=== PATIENT | female | born 1930 | race Caucasian/White ===

== ENCOUNTER 2016-09-14 13:30 | Emergency (ER) | payer MEDICARE ==
[~2016-09-14] VITALS: Ht 160 cm; Wt 65.2 kg
[~2016-09-14 13:30] MED LIST: ASPI81TA2 PO; AZIT500T5 PO; BECL8.7A6 ORAL INH; BENA10TA PO; BUDE180A INH; CITA20TA9 PO; DILT120C48 PO; GABA-336 PO; INSU100C14 SQ; INSU100V12 SQ; INSU100V13 SQ; IPRA4AER INH; LATA2.5D7 RIGHT EYE; MULT1CAP47 PO; NAPR220T24 PO; PRED20TA PO; QUET25TA PO; SIMV40TA2 PO
[2016-09-14 13:35] VITALS: Ht 160 cm; Wt 65.2 kg
--- OUTSIDE RECORDS SUMMARY | 2016-09-14 13:35 | XMS REPORT | Continuity of Care Document ---
Author Author Josh [facility] Organization [facility] Address Unknown Phone Unavailable Support Name Relationship Address Phone MARIANA SMART MD Caregiver [address] [place] [address] SEBASTIAN PARSONS MD Caregiver [address] [place] [phone] JOSE FALLON DPOA Next Of Kin [address], [place] [id number] Insurance Providers Payer Name Policy Number Subscriber Name Relationship Medicareadvantra Ppo [id number] Kurt Samuel 16 Self Advance Directives Directive Response Recorded Date/Time Ordered Resuscitation Status Do Not Resuscitate 03/26/14 6:12pm Resuscitation Documents on File Yes 03/26/14 5:49pm Chief Complaint and Reason for Visit Chief Complaint DEHYDRATION/SYNCOPE VS FALL/ELEVATED CK/MYOGLOBIN Reason for Visit Dizziness and Giddiness UTI (urinary tract infection) Dehydration Rhabdomyolysis Problems Medical Problems Problem Onset Date Status Dizziness and Giddiness Unknown Active UTI (urinary tract infection) Unknown Active Dehydration Unknown Active Rhabdomyolysis 03/28/2014 Active Medications Medication Dose Route Sig Days/Qty Instructions Order Date Discontinued Date Status Simvastatin 40 Mg PO BEDTIME 11/03/10 05/22/12 Discontinued Budesonide 2 PO TWICE A DAY 11/03/10 Active Diltiazem Hcl 120 Mg PO DAILY 11/03/10 03/28/14 Discontinued Benazepril Hcl 10 Mg PO DAILY 11/03/10 Active Quetiapine Fumarate 25 Mg PO DAILY 11/03/10 Active Citalopram Hydrobromide 10 Mg PO DAILY 11/03/10 03/28/14 Discontinued Digoxin 125 Mg PO DAILY 11/03/10 Active Naproxen 1 Tab PO NEEDED 11/03/10 Active Multivitamins W-Minerals 1 Cap PO DAILY 11/03/10 Active Ipratropium/Albuterol Sulfate 14.7 Gm IH FOUR TIMES DAILY 01/21/11 Active Insulin Detemir 40 U SQ DAILY 01/21/11 03/28/14 Discontinued Gabapentin 300 Mg PO TWICE A DAY 01/21/11 05/22/12 Discontinued Diltiazem Hcl 120 Mg PO DAILY 05/22/12 Active Gabapentin 300 Mg PO TWICE A DAY 05/22/12 Active Aspirin 325 Mg PO BEDTIME 05/22/12 Active Simvastatin 40 Mg PO BEDTIME Take 1 tablet, one time a day at BEDTIME. 03/26/14 Active Ipratropium/Albuterol Sulfate 2 Puff PO FOUR TIMES DAILY 03/26/14 Active [Metformin] 1 Tab PO TWICE A DAY 03/26/14 Active Insulin Lispro 1 Unit SQ 03/26/14 03/28/14 Discontinued Levofloxacin 500 Mg PO BEFORE BREAKFAST 8 Qty 03/28/14 Active Citalopram Hydrobromide 20 Mg PO DAILY 30 Days 03/28/14 03/28/14 Discontinued Citalopram Hydrobromide 1 Tab PO DAILY 30 Qty 03/28/14 Active Social History Social History Problem Response Recorded Date/Time Smoking Status Former smoker 03/26/2014 5:50pm When did patient START smoking? AGE 12 YEARS "OFF AND ON " 03/26/2014 5:50pm When did patient STOP smoking? 15 YEARS AGO 03/26/2014 5:50pm Hx Substance Use No 02/16/2013 7:20am Hx Alcohol Use Y OCCASIONAL 03/26/2014 11:55am Has the pt used tobacco in the last 12 months No 03/26/2014 5:50pm Query Response Start Date Stop Date Smoking Status Former smoker Hospital Discharge Instructions Instructions: Care Instructions: Reason for Hospitalization: Dehydration, urinary tract infection. I was in the hospital because (patient own words): PT STATES "BECAUSE I COULDN'T GET UP OFF THE FLOOR. " Discharge Diet: 1800 edwin ADA Discharge Activity: As tolerated; up with walker for support. Follow Up Appointments: Follow up with Dr. Parsons on April 12, 2014 at 11:00am. General Information: Please have Home health call me daily with updates including blood sugars at first. Condition at time of discharge: Fair Condition at time of discharge: Good Fluid restriction - 800 cc per day Wound/Incision Care: n/a Durable Medical Equipment: n/a Notify Physician If: Worsening nosebleeds, blood in the stool, abdominal pain General Information: n/a Condition at time of discharge: Fair Plan of Care Discharge Date 03/28/14 1:38pm Disposition 06 HOME HEALTH SERVICE Instructions/Education Provided DI for Dehydration -- Adult DI for Urinary Tract Infection (UTI) Prescriptions See Medications Section Functional Status Query Response Date Recorded Physical Hygiene Self March 28, 2014 11:10am Disabilities Hearing March 28, 2014 11:10am Devices Used None March 28, 2014 11:10am Dressing Self March 28, 2014 11:10am Ambulation Self March 28, 2014 11:10am Diet Self March 28, 2014 11:10am Mental Status Alert Forgetful March 28, 2014 11:10am Disabilities Hearing March 28, 2014 11:10am Devices Used None March 28, 2014 11:10am Physical Hygiene Self March 28, 2014 11:10am Dressing Self March 28, 2014 11:10am Ambulation Self March 28, 2014 11:10am Diet Self March 28, 2014 11:10am Allergies, Adverse Reactions, Alerts Allergen Type Severity Reaction Status Last Updated Penicillin Allergy Unknown Active 03/26/14 Immunizations Name Given Type Hx Influenza Vaccination Y MAR 2014 Historical Hx Pneumococcal Vaccination No Historical Hx Influenza Vaccination Y MAR 2014 Historical Vital Signs Acute Vital Signs Vital Response Date/Time Temperature (Fahrenheit) 97.2 deg F (96.8 - 99.1) Temperature (Calculated Celsius) 36.59626 degrees C (36.0 - 37.3) Temperature Source Oral Pulse Rate (adult) 72 bpm (60 - 100) Respiratory Rate 24 breaths/min (10 - 20) O2 Sat by Pulse Oximetry 95 % (90 - 100) Height 5 ft 3 in Weight 134 lb Body Mass Index 23.0 kg/m^2 Results Test Source Date Result Interp. Ref. Range Comments Alanine Aminotransferase (ALT/SGPT) March 28, 2014 5:18am 75 U/L H 9- 52 Albumin March 28, 2014 5:18am 2.8 G/DL L 3.5-5.0 Albumin/Globulin Ratio March 28, 2014 5:18am 1.0 RATIO L 1.1-2.2 Alkaline Phosphatase March 28, 2014 5:18am 155 U/L DH 38-126 Anion Gap March 28, 2014 5:18am 12 MEQ/L N 5-15 Aspartate Amino Transf (AST/SGOT) March 28, 2014 5:18am 65 U/L H 14- 36 B-Type Natriuretic Peptide November 26, 2007 10:18am 27 PG/ML N 15-100 BUN/Creatinine Ratio March 28, 2014 5:18am 20 RATIO N 6-26 Band Neutrophils # March 27, 2014 4:59am 1.0 T/MM3 - Band Neutrophils % March 27, 2014 4:59am 8.0 % H 0-6 Basophils # (Auto) March 28, 2014 5:18am 0.1 T/MM3 N 0-0.2 Basophils (%) (Auto) March 28, 2014 5:18am 0.7 % N 0-2 Blood Urea Nitrogen March 28, 2014 5:18am 16.0 MG/DL N 7-17 Calcium Level March 28, 2014 5:18am 8.8 MG/DL N 8.4-10.2 Calculated Osmolality March 28, 2014 5:18am 275 MOSM/KG N 261-280 Carbon Dioxide Level March 28, 2014 5:18am 24 MEQ/L N 22-30 Chemistry Specimen Hemolysis March 28, 2014 5:18am < 15 0-25 0-25: No Hemolysis.26-70: Slight Hemolysis - can falsely elevate K and Urine Protein. 71-285: Moderate Hemolysis - can falsely elevate K, Troponin I, CA 19-9, PTH, CSF GLucose, and Urine Protein, and can falsely decrease Phenytoin. 286-999: Gross Hemolysis - can falsely elevate K, Troponin I, CA 19-9, PTH, CSF Glucose, and Urine Protine, and can falsely decrease Phenytoin. Recommend specimen recollection. Chloride Level March 28, 2014 5:18am 106 MEQ/L N 98-107 Conjugated Bilirubin May 22, 2012 9:44am 0.00 MG/DL N 0.00-0.30 Creatinine March 28, 2014 5:18am 0.8 MG/DL N 0.7-1.2 Digoxin Level March 26, 2014 8:05pm 0.5 NG/ML L 0.8-2.0 COMMENT ON BLOOD IN LAB EKG November 26, 2007 10:18am Complete - COMMENT LAB Eosinophils # (Auto) March 28, 2014 5:18am 0.1 T/MM3 N 0-0.5 Eosinophils (%) (Auto) March 28, 2014 5:18am 1.3 % N 0-4 Globulin March 28, 2014 5:18am 2.7 G/DL N 2.4-3.6 Glomerular Filtration Rate Calc March 28, 2014 5:18am 68 - Glucometer March 28, 2014 5:58am 117 mg/dL H 65-110 Glucose Level March 28, 2014 5:18am 111 MG/DL H 65-110 Hematocrit March 28, 2014 5:18am 35.0 % L 36-46 Hemoglobin March 28, 2014 5:18am 11.7 GM/DL L 12-16 Icterus Index March 28, 2014 5:18am < 2 0-7 Immature Granulocyte # (Auto) March 28, 2014 5:18am 0.14 T/MM3 H 0.00- 0.03 Immature Granulocyte % (Auto) March 28, 2014 5:18am 1.3 % H 0.0-0.5 Lymphocytes # (Auto) March 28, 2014 5:18am 1.0 T/MM3 N 1-4.8 Lymphocytes # (Manual) March 27, 2014 4:59am 0.6 T/MM3 L 1-4.8 Lymphocytes % (Manual) March 27, 2014 4:59am 5.0 % L 23-45 Lymphocytes (%) (Auto) March 28, 2014 5:18am 9.3 % L 23-45 Mean Corpuscular Hemoglobin March 28, 2014 5:18am 30.7 UUG N 26-34 Mean Corpuscular Hemoglobin Concent March 28, 2014 5:18am 33.4 GM/DL N 31-37 Mean Corpuscular Volume March 28, 2014 5:18am 91.9 UM3 N 80-100 Mean Platelet Volume March 28, 2014 5:18am 10.1 UM3 N 9.4-12.4 Monocytes # (Auto) March 28, 2014 5:18am 1.3 T/MM3 H 0-0.8 Monocytes # (Manual) March 27, 2014 4:59am 1.0 T/MM3 H 0-0.8 Monocytes % (Manual) March 27, 2014 4:59am 8.0 % N 0-9.0 Monocytes (%) (Auto) March 28, 2014 5:18am 12.2 % H 0-9.0 Myoglobin March 26, 2014 12:30pm 489.9 NG/ML H 0-61.5 NN-Cle-N-Type Natriuretic Peptide March 26, 2014 12:30pm 556 PG/ML H 0 -175 Rule in cut points: <50 years old=450; 50-75 years old=900; >75 years old=1800; When utilizing ProBNP rule-in cut points, adjustment for impaired renal function is typically not required. Neutrophils # (Auto) March 28, 2014 5:18am 8.1 T/MM3 H 1.8-7.7 Neutrophils # (Manual) March 27, 2014 4:59am 9.8 T/MM3 H 1.8-7.7 Neutrophils % (Manual) March 27, 2014 4:59am 79.0 % H 33-66 Neutrophils (%) (Auto) March 28, 2014 5:18am 75.2 % H 33-66 Platelet Count March 28, 2014 5:18am 240 T/MM3 N 130-400 Potassium Level March 28, 2014 5:18am 4.1 MEQ/L N 3.6-5 Prothromb Time International Ratio February 16, 2013 8:05am 0.97 N 0.86 -1.10 THERAPUTIC RANGE=2.00-3.00 FOR ANTI-THROMBOSIS THERAPUTIC RANGE=2.50- 3.50 FOR IMPLANTED VALVE RDW Standard Deviation March 28, 2014 5:18am 45.5 FL N 36.9-50.2 Red Blood Count March 28, 2014 5:18am 3.81 M/MM3 L 4.00-5.20 Sodium Level March 28, 2014 5:18am 142 MEQ/L DN 134-144 Total Bilirubin March 28, 2014 5:18am 0.50 MG/DL N 0.20-1.30 Total Creatine Kinase March 28, 2014 5:18am 116 U/L N 30-135 Total Protein March 28, 2014 5:18am 5.5 G/DL L 6.3-8.2 Troponin I February 16, 2013 8:05am < 0.012 ng/ml 0-0.12 Turbidity March 28, 2014 5:18am < 20 0-20 Unconjugated Bilirubin May 22, 2012 9:44am 0.30 MG/DL N 0.00-1.10 Urinalysis Comment February 16, 2013 8:45am Microscopic not ind. - Has specimen been collected/obtained? Y Urine Bacteria March 26, 2014 12:15pm 3+ H - Has specimen been collected/obtained? Y Urine Bilirubin March 26, 2014 12:15pm Negative - Has specimen been collected/obtained? Y Urine Blood March 26, 2014 12:15pm 2+ H - Has specimen been collected /obtained? Y Urine Collection Type March 26, 2014 12:15pm Voided-not cc-midstr - Has specimen been collected/obtained? Y Urine Color March 26, 2014 12:15pm Yellow - Has specimen been collected/obtained? Y Urine Culture Indicated March 26, 2014 12:15pm Cult reflexed &setup - Has specimen been collected/obtained? Y Urine Glucose (UA) March 26, 2014 12:15pm Negative - Has specimen been collected/obtained? Y Urine Ketones March 26, 2014 12:15pm 2+ H - Has specimen been collected/obtained? Y Urine Leukocyte Esterase March 26, 2014 12:15pm 1+ H - Has specimen been collected/obtained? Y Urine Microscopic Not Indicated November 03, 2010 12:45pm Not indicated - Has specimen been collected/obtained? Y Urine Nitrite March 26, 2014 12:15pm Positive H - Has specimen been collected/obtained? Y Urine Protein March 26, 2014 12:15pm 1+ H - Has specimen been collected/obtained? Y Urine RBC March 26, 2014 12:15pm 5-10 /HPF H - Has specimen been collected/obtained? Y Urine Specific [place] March 26, 2014 12:15pm 1.025 - Has specimen been collected/obtained? Y Urine Squamous Epithelial Cells March 26, 2014 12:15pm 0-5 - Has specimen been collected/obtained? Y Urine Turbidity March 26, 2014 12:15pm Sl cloudy - Has specimen been collected/obtained? Y Urine Urobilinogen March 26, 2014 12:15pm 0.2 EU/DL - Has specimen been collected/obtained? Y Urine WBC March 26, 2014 12:15pm 20-30 /HPF H - Has specimen been collected/obtained? Y Urine White Blood Cell Casts March 26, 2014 12:15pm 0-1 /LPF - Has specimen been collected/obtained? Y Urine pH March 26, 2014 12:15pm 6.0 - Has specimen been collected/ obtained? Y White Blood Count March 28, 2014 5:18am 10.8 T/MM3 N 4.5-11.0 Urine Culture Urine, Voided-Not Cc-Midstream March 26, 2014 12:58pm Escherichia Coli Name: KURT SAMUEL Katina Unit #: [id number] : 1930 Sex: F Loc / Svc: ED DOS: 03/26/14 Signed Report #: [id number] DIAGNOSTIC IMAGING REPORT TYPE OF EXAM: CHEST, PA & LATERAL Dictated By: SINDI KAM MD INDICATION: ITS.REASON: fall, expiratory wheezes CHEST 2-VIEWS UPRIGHT (PA & LAT): COMPARISON: February 16, 2013 FINDINGS: The lungs are clear without evidence of focal abnormal airspace opacity. There is no pleural effusion or pneumothorax. Poststernotomy changes are present. The heart size, mediastinal contours and pulmonary vascularity are stable. IMPRESSION: No acute cardiopulmonary disease. . Procedures No known history of procedures. Encounters Encounter Location Date/Time Discharged Inpatient [facility] 03/26/14 4:19pm Recent Diagnosis Dizziness and Giddiness UTI (urinary tract infection) Dehydration Rhabdomyolysis
--- OUTSIDE RECORDS SUMMARY | 2016-09-14 13:35 | XMS REPORT | Continuity of Care Document ---
Author Author [facility] Organization [facility] Address Unknown Phone Unavailable Support Name Relationship Address Phone SEBASTIAN PARSONS MD Caregiver [address] [place] [address] [place] [address] Unavailable SEBASTIAN PARSONS MD Caregiver [address] [place] [address] [place] [address] Unavailable SEBASTIAN PARSONS MD Caregiver [address] [place] [address] [place] [address] Unavailable FALLONJOSE SUAZO DPOA Next Of Kin [address] [place] [address] Insurance Providers Guarantor Kurt Samuel Address [address] [place] [address] Email PER DPOA NO PT PORTAL/NO MORE CALLS Payer Medicareadvantra Ppo Policy Number [id number] Subscriber's Name JimmieKurt N Relationship 18 Self Group Number [id number] Advance Directives Directive Response Recorded Date/Time Dr Ash Resuscitation Status Do Not Resuscitate 06/09/16 3:51pm Resuscitation Documents on File No 06/09/16 4:30pm DPOA for Healthcare Only No 06/09/16 4:30pm Living Will No 06/09/16 4:30pm Problems Active Problems Medical Problem Onset Date Status Dehydration Unknown Acute Dizziness and Giddiness Unknown Acute Elevated CK Unknown Acute Elevated myoglobin level Unknown Acute Elevated myoglobin level Unknown Acute Near syncope Unknown Acute Rhabdomyolysis 03/28/2014 Acute UTI (urinary tract infection) Unknown Acute Medications Current Home Medications Medication Dose Units Route Directions Days Qty Instructions Start Date Albuterol/Ipratropium (Combivent Respimat Inhal [place]) 120 Puff/4 Gm Inha 2 Puff Inhalation Every 4 Hours as needed for Shortness Of Air Aspirin 81 Mg Tab.chew 1 Tab Oral Daily 11/23/14 Azithromycin 500 Mg Tablet 500 Mg Oral Daily 3 Days 3 Tablet 06/11/16 Beclomethasone Dipropionate (Qvar 80) 8.7 Gm Aer.w.adap 2 Puff Oral Inhalation Twice A Day 06/10/16 Benazepril Hcl (Lotensin) 10 Mg Tablet 1 Tab Oral Daily 11/03/10 Budesonide (Pulmicort) 180 Mcg Aero.powd 2 Puff Inhalation Daily 11/03/10 Citalopram Hydrobromide (Citalopram Hbr) 20 Mg Tablet 1 Tab Oral Daily 06/10/16 Diltiazem Hcl (Cartia Xt) 120 Mg Cap.sr.24h 1 Cap Oral Daily 22/05 Gabapentin 100 Mg Capsule 1 Cap Oral Three Times A Day 06/10/16 Insulin Aspart (Novolog) 100 Unit/Ml Inj 12 Unit Sub-Q Daily 09/21 Insulin Detemir (Levemir) 100 Unit/Ml Inj 30 Unit Sub-Q Bedtime 06/10/16 Insulin Lispro (Humalog) 100 Unit/1 Ml Cartridge 7 Unit Sub-Q Three Times Daily With Meals 11/23/14 Latanoprost 2.5 Ml Drops 1 Drop Right Eye Only Daily 06/10/16 Multivitamins W-Minerals (Multivitamin) 1 Cap Capsule 1 Cap Oral Daily 11/03/10 Naproxen Sodium 220 Mg Tablet 1 Tab Oral Daily as needed for Pain 06/10/16 Prednisone 20 Mg Tablet 20 Mg Oral Twice Daily With Meals 7 Days 14 Tablet Take 1 tablet, by mouth, 2 times a day with meals. 06/11/16 Quetiapine Fumarate (Seroquel) 25 Mg Tablet 12.5 Mg Oral Bedtime Take 1 tablet, by mouth, once a day at bedtime. 06/10/16 Simvastatin (Zocor) 40 Mg Tablet 1 Tab Oral Bedtime 03/26/14 Past Home Medications Medication Directions Ordered Status Citalopram Hydrobromide (Celexa) 10 Mg Tablet, 20 Mg Oral Daily 03/28/14 Discontinued Citalopram Hydrobromide (Celexa) 10 Mg Tablet, 10 Mg Oral Daily 11/03/10 Discontinued Diltiazem Hcl (Cardizem Sr) 120 Mg Cap.sr.12h, 120 Mg Oral Daily 11/03/10 Discontinued Gabapentin 300 Mg Tablet, 300 Mg Oral Twice A Day 01/21/11 Discontinued Insulin Detemir (Levemir) 100 U/Ml Insuln.pen, 40 U Sub-Q Daily 01/21/11 Discontinued Insulin Lispro (Humalog) 100 Unit/1 Ml Insuln.pen, 1 Unit Sub-Q 03/26/14 Discontinued Simvastatin (Zocor) 40 Mg Tablet, 40 Mg Oral Bedtime 11/03/10 Discontinued Social History Social History Problem Response Recorded Date/Time Onset Date Status Reason for Hospitalization COPD 06/11/2016 11:19am Not Applicable Not Applicable Hx Substance Use No 11/23/2014 11:15am Not Applicable Not Applicable Hx Alcohol Use Y OCCASIONAL 11/23/2014 11:15am Not Applicable Not Applicable Has the pt used tobacco in the last 12 months No 06/09/2016 4:32pm Not Applicable Not Applicable Tobacco Usage none 11/28/2014 3:19pm Not Applicable Not Applicable Query Response Start Date Stop Date Smoking Status Former smoker Hospital Discharge Instructions Instructions: Care Instructions: Reason for Hospitalization: COPD I was in the hospital because (patient own words): The doctor sent me. I've been coughing up phelm. Discharge Diet: ADA 2000 Abbe diabetic diet Discharge Activity: As tolerated; rec PT/OT eval Follow Up Appointments: Dr. Parsons in one week Pending Lab / Results: Follow up w/ your PCP Wound/Incision Care: N/A Pain Scale Utilized to Educate Patient: 0-10 Pain Scale Pain Management/Treatment: N/A Expected Signs/Symptoms: Mild Cough Mild SOA Notify Physician If: Fever Lethargy Worsening cough or SOA During Business Hours:: Please call the physician's office at [phone] After Business Hours:: Please call [phone] and have the stitcher set up operator automatic page the physician. Condition at time of discharge: Good Plan of Care Discharge Date 06/11/16 1:13pm Disposition 03 TO [facility] NOT [facility] (SNF) Instructions/Education Provided Chronic Obstructive Pulmonary Disease Prescriptions See Medication Section Care Plan and Goals See Discharge Instructions Section Functional Status Query Response Date Recorded Mobility Status Ambulatory w/assist June 11, 2016 11:19am Assistive Devices Four Wheeled Walker June 11, 2016 11:19am Activity Limitations Shortness of breath June 11, 2016 11:19am Feeding Ability Independent June 11, 2016 11:19am Toileting Ability Assist June 11, 2016 11:19am Grooming Ability Independent June 11, 2016 11:19am Dressing Ability Independent June 11, 2016 11:19am Driving Ability Dependent June 11, 2016 11:19am Housework Ability Independent June 11, 2016 11:19am Meal Preparation Ability Dependent June 11, 2016 11:19am Stair Climbing Ability Assist June 11, 2016 11:19am Ability to complete ADL's impeded by No change June 11, 2016 11:19am Cognitive/Perceptual Impairments Impaired vision Impaired hearing June 11, 2016 11:19am Visual Assistive Devices Glasses June 09, 2016 8:46pm Preferred Method of Learning Listening June 09, 2016 8:46pm Allergies, Adverse Reactions, Alerts Allergen Type Severity Reaction Status Last Updated Penicillin Allergy Unknown Active 11/23/14 Immunizations Query Response on File Recorded Date/Time Hx Influenza Vaccination Y Feb 2016 06/09/16 4:32pm Hx Pneumococcal Vaccination No 06/09/16 4:32pm Hx Influenza Vaccination Y Feb 2016 06/09/16 4:32pm Influenza Vaccine Hx feb 2016 06/09/16 6:38pm Vital Signs Acute Vital Signs Vital Response Date/Time Temperature (Fahrenheit) 96.3 deg F (96.8 - 99.1) 06/11/2016 7:44am Temperature (Calculated Celsius) 35.83488 degrees C (36.0 - 37.3) 06/11/2016 7:44am Pulse Rate (adult) 88 bpm (60 - 100) 06/11/2016 7:44am Respiratory Rate 22 breaths/min (10 - 20) 06/11/2016 7:44am O2 Sat by Pulse Oximetry 91 % (90 - 100) 06/11/2016 11:25am Oxygen Delivery Method Room Air 06/11/2016 7:44am Oxygen Flow Rate 2.00 L/min 06/11/2016 12:15am Blood Pressure 162/80 mm Hg 06/11/2016 7:44am Blood Pressure Source Automatic Cuff 06/11/2016 7:44am Height (Feet) 5 feet 06/09/2016 4:01pm Height (Inches) 3.00 inches 06/09/2016 4:01pm Weight (Kilograms) 68.400 kg 06/11/2016 7:44am Body Mass Index (BMI) 26.1 06/09/2016 4:01pm Results Laboratory Results Test Name Result Units Flags Reference Collection Date/Time Result Date/ Time Comments White Blood Count 11.6 T/MM3 D H 4.5-11.0 06/11/2016 4:36am 06/11/2016 5: 59am Red Blood Count 3.66 M/MM3 L 4.00-5.20 06/11/2016 4:36am 06/11/2016 5: 59am Hemoglobin 11.7 GM/DL L 12-16 06/11/2016 4:36am 06/11/2016 5:59am Hematocrit 35.2 % L 36-46 06/11/2016 4:36am 06/11/2016 5:59am Mean Corpuscular Volume 96.2 UM3 80-100 06/11/2016 4:36am 06/11/2016 5: 59am Mean Corpuscular Hemoglobin 32.0 UUG 26-34 06/11/2016 4:36am 2016 5:59am Mean Corpuscular Hemoglobin Concent 33.2 GM/DL 31-37 06/11/2016 4:36am 06/11/2016 5:59am RDW Standard Deviation 43.6 FL 36.9-50.2 06/11/2016 4:36am 06/11/2016 5 :59am Platelet Count 261 T/MM3 130-400 06/11/2016 4:36am 06/11/2016 5:59am Mean Platelet Volume 10.0 UM3 9.4-12.4 06/11/2016 4:36am 06/11/2016 5: 59am Neutrophils (%) (Auto) 77.8 % H 33-66 06/09/2016 4:41pm 06/09/2016 4: 51pm Lymphocytes (%) (Auto) 10.9 % L 23-45 06/09/2016 4:41pm 06/09/2016 4: 51pm Monocytes (%) (Auto) 8.2 % 0-9.0 06/09/2016 4:41pm 06/09/2016 4:51pm Eosinophils (%) (Auto) 2.1 % 0-4 06/09/2016 4:41pm 06/09/2016 4:51pm Basophils (%) (Auto) 0.4 % 0-2 06/09/2016 4:41pm 06/09/2016 4:51pm Immature Granulocyte % (Auto) 0.6 % H 0.0-0.5 06/09/2016 4:41pm 2016 4:51pm Absolute Neutrophils (auto) 8.9 T/MM3 H 1.8-7.7 06/09/2016 4:41pm 2016 4:51pm Absolute Lymphocytes (auto) 1.3 T/MM3 1-4.8 06/09/2016 4:41pm 2016 4:51pm Absolute Monocytes (auto) 0.9 T/MM3 H 0-0.8 06/09/2016 4:41pm 2016 4:51pm Absolute Eosinophils (auto) 0.2 T/MM3 0-0.5 06/09/2016 4:41pm 2016 4:51pm Absolute Basophils (auto) 0.1 T/MM3 0-0.2 06/09/2016 4:41pm 06/09/2016 4:51pm Absolute Immature Granulocyte (auto 0.07 T/MM3 H 0.00-0.03 06/09/2016 4: 41pm 06/09/2016 4:51pm Neutrophils % (Manual) 83.0 % H 33-66 06/11/2016 4:36am 06/11/2016 6: 38am Band Neutrophils % 3.0 % 0-6 06/10/2016 4:21am 06/10/2016 6:29am Lymphocytes % (Manual) 14.0 % L 23-45 06/11/2016 4:36am 06/11/2016 6: 38am Monocytes % (Manual) 3.0 % 0-9.0 06/11/2016 4:36am 06/11/2016 6:38am Band Neutrophils # 0.2 T/MM3 06/10/2016 4:21am 06/10/2016 6:29am Absolute Neutrophils (Manual) 9.6 T/MM3 H 1.8-7.7 06/11/2016 4:36am 10/2016 6:38am Lymphocytes # (Manual) 1.6 T/MM3 1-4.8 06/11/2016 4:36am 06/11/2016 6: 38am Monocytes # (Manual) 0.3 T/MM3 0-0.8 06/11/2016 4:36am 06/11/2016 6: 38am Red Cell Morphology Comment NORMAL 06/11/2016 4:36am 06/11/2016 6: 38am Icterus Index < 2 0-7 06/11/2016 4:36am 06/11/2016 5:07am Chemistry Specimen Hemolysis < 15 0-25 06/11/2016 4:36am 06/11/2016 5 :07am 0-25: Specimen Exhibited No Hemolysis. Turbidity < 20 0-20 06/11/2016 4:36am 06/11/2016 5:07am Sodium Level 136 MEQ/L 134-144 06/11/2016 4:36am 06/11/2016 5:07am Potassium Level 4.6 MEQ/L 3.6-5 06/11/2016 4:36am 06/11/2016 5:07am Chloride Level 101 MEQ/L 98-107 06/11/2016 4:36am 06/11/2016 5:07am Carbon Dioxide Level 26 MEQ/L 22-30 06/11/2016 4:36am 06/11/2016 5: 07am Anion Gap 9 MEQ/L 5-15 06/11/2016 4:36am 06/11/2016 5:07am Blood Urea Nitrogen 17.0 MG/DL 7-17 06/11/2016 4:36am 06/11/2016 5: 07am Creatinine 0.6 MG/DL L 0.7-1.2 06/11/2016 4:36am 06/11/2016 5:07am BUN/Creatinine Ratio 28 RATIO H 6-26 06/11/2016 4:36am 06/11/2016 5: 07am Glomerular Filtration Rate Calc 94 06/11/2016 4:36am 06/11/2016 5: 07am Glucose Level 160 MG/DL H 65-110 06/11/2016 4:36am 06/11/2016 5:07am Calculated Osmolality 267 MOSM/KG 261-280 06/11/2016 4:36am 06/11/2016 5:07am Calcium Level 9.1 MG/DL 8.4-10.2 06/11/2016 4:36am 06/11/2016 5:07am Total Bilirubin 0.30 MG/DL 0.20-1.30 06/11/2016 4:36am 06/11/2016 5: 07am Alkaline Phosphatase 54 U/L 38-126 06/11/2016 4:36am 06/11/2016 5:07am Total Protein 6.0 G/DL L 6.3-8.2 06/11/2016 4:36am 06/11/2016 5:07am Albumin 3.4 G/DL L 3.5-5.0 06/11/2016 4:36am 06/11/2016 5:07am Globulin 2.6 G/DL 2.4-3.6 06/11/2016 4:36am 06/11/2016 5:07am Albumin/Globulin Ratio 1.3 RATIO 1.1-2.2 06/11/2016 4:36am 06/11/2016 5 :07am Aspartate Amino Transf (AST/SGOT) 26 U/L 14-36 06/11/2016 4:36am 2016 5:07am Alanine Aminotransferase (ALT/SGPT) 36 U/L 9-52 06/11/2016 4:36am 06/11 5:07am Adenovirus (PCR) NEGATIVE NEGATIVE 06/09/2016 7:49pm 06/09/2016 9: 24pm Coronavirus Type 229E (PCR) NEGATIVE NEGATIVE 06/09/2016 7:49pm 06/09 9:24pm Coronavirus Type HKU1 (PCR) NEGATIVE NEGATIVE 06/09/2016 7:49pm 06/09 9:24pm Coronavirus Type NL63 (PCR) NEGATIVE NEGATIVE 06/09/2016 7:49pm 06/09 9:24pm Coronavirus Type OC43 (PCR) DETECTED A NEGATIVE 06/09/2016 7:49pm 08/2016 9:24pm Human Metapneumovirus (PCR) NEGATIVE NEGATIVE 06/09/2016 7:49pm 06/09 9:24pm Enterovirus/Rhinovirus (PCR) NEGATIVE NEGATIVE 06/09/2016 7:49pm 08/2016 9:24pm Influenza Virus Type A (PCR) NEGATIVE NEGATIVE 06/09/2016 7:49pm 08/2016 9:24pm Influenza Virus Type B (PCR) NEGATIVE NEGATIVE 06/09/2016 7:49pm 08/2016 9:24pm Parainfluenza Type 1 (PCR) NEGATIVE NEGATIVE 06/09/2016 7:49pm 2016 9:24pm Parainfluenza Type 2 (PCR) NEGATIVE NEGATIVE 06/09/2016 7:49pm 2016 9:24pm Parainfluenza Type 3 (PCR) NEGATIVE NEGATIVE 06/09/2016 7:49pm 2016 9:24pm Parainfluenza Type 4 (PCR) NEGATIVE NEGATIVE 06/09/2016 7:49pm 2016 9:24pm Respiratory Syncytial Virus (PCR) NEGATIVE NEGATIVE 06/09/2016 7:49pm 06/09/2016 9:24pm Bordetella parapertussis DNA (PCR) NEGATIVE NEGATIVE 06/09/2016 7: 49pm 06/09/2016 9:24pm Chlamydia pneumoniae DNA (PCR) NEGATIVE NEGATIVE 06/09/2016 7:49pm 9:24pm Mycoplasma pneumoniae (PCR) NEGATIVE NEGATIVE 06/09/2016 7:49pm 06/09 9:24pm Glucometer 226 mg/dL H 65-110 06/11/2016 10:58am 06/11/2016 11:03am Name: KURT SAMUEL Unit #: [id number] : 1930 Sex: F Admit Date: 06/09/16 Loc / Svc: MED Discharge Date: DIAGNOSTIC IMAGING REPORT Report #: [id number] [place], [place] INDICATION: ITS.REASON: F/U COPD exac/pneumonia PROCEDURE: CHEST 2-VIEWS UPRIGHT (PA \T\ LAT) Encounter: Initial COMPARISON: June 09, 2016 FINDINGS: Lungs appear stable with mild interstitial prominence. No new or worsening airspace disease. No pleural effusion or pneumothorax. Prior CABG. Heart size, pulmonary vascularity and mediastinal contours are stable. Impression: Stable appearance of the chest. . Procedures No known history of procedures. Encounters Encounter Location Arrival/Admit Date Discharge/Depart Date Attending Provider Discharged Inpatient [facility] 06/09/16 3:31pm 06/11/16 1:13pm SEBASTIAN PARSONS MD
--- NOTE | 2016-09-14 13:50 | NUR ---
REPORT TO NEIL DONG
--- NOTE | 2016-09-14 14:11 | ERPDOC ---
Departure Disposition Decision Date: Sep 14, 2016 Disposition Decision Time: 15:55 Disposition: 01 DISCHARGED HOME, SELF-CARE Impression Impression Impression: Primary Impression: Lingular pneumonia Severity: Moderate Condition: Stable Seen By: Mid-level only Referrals: SEBASTIAN FONSECA MD (Family) Patient Instructions: Pneumonia (ED) Problems/Meds/Labs Reviewed?: Yes Medications reviewed and manag: Yes Additional Instructions: Take the Zithromax as prescribed. We did give a dose of Rocephin in ER and also have given her the first dose of Zithromax as well. Please continue to administer O2 at 2L per NC to maintain sats above 92%. Follow up with primary care provider if any further concerns. Sepsis labs today are all normal. Follow up care ordered?: Yes Mental Status: Alert Scripts Azithromycin (Zithromax) 250 Mg Tablet 1 TAB PO DAILY, #4 TAB 0 Refills TAKE TWO ON DAY ONE, THEN ONE TAB DAILY UNTIL ALL TAKEN. Prov: LISA BRUNO OFFICE SYSTEM ANALYST 09/14/16 HPI - General Medical General Chief Complaint: Cough,Fever,Flu,URI Stated Complaint: EVALVATED R/O PNEMONIA & SEPSIS Time Seen by Provider: 14:00 Source: patient Exam Limitations: no limitations HPI - General Medical Initial Comments She presents to ER from the longterm where she lives. For the last several days she has not felt well. Review of [place] nurses notes does show that she has been becoming increasingly weak over the last week. Had fallen in her room a few days ago. Also had at least one episode of vomiting. She did see her PCP and was noted to have O2 sats of 88%. Was started on 2 L O2 per NC at that time. She was scheduled to follow up with him but did not go to the appointment. Today she c/o to the nurses that she was to weak to walk and so they made her an appoinment with her PCP. He sent her here to the ER for evaluation for possible sepsis. She is alert and oriented and denies any vomiting/nausea, abdominal pain, chest pain. She states that she is SOA but is always SOA. Does not appear in any distress at this time. Occurred At: home Severity: moderate Associated Symptoms: fever/chills (elevated temp per [place] staff), malaise, nausea /vomiting, weakness, DENIES: chest pain, cough, diaphoresis, headaches, loss of appetite, rash, seizure, shortness of breath, syncope Hx of Similar Symptoms: No Allergies: Coded Allergies: Penicillins (Unverified Allergy, Unknown, 09/14/16) Uncoded Allergies: ANTIHISTAMINES (Allergy, Unknown, 09/14/16) Past History Past Medical History Metabolic: diabetes, hypercholesterolemia, hypertension ENMT: other Cardiac: CAD, PSVT Hx Echocardiogram: No Respiratory: COPD, pneumonia Female: UTI Surgical History General: hernia Cardiac: cardiac bypass Reproductive/: other Joint: knee Family History Family PMH: FOUND: CAD, CVA, cancer, diabetes, hypertension Vaccines Hx Influenza Vaccination: Yes (Feb 2016) Hx Pneumococcal Vaccination: No Review of Systems Constitutional Constitutional: fatigue, fever (per [place]), weakness, DENIES: chills, dizziness Eyes Vision: DENIES: blurring, double vision ENMT Ears: DENIES: drainage, pain Sinuses: DENIES: congestion, rhinorrhea Mouth/Throat: DENIES: painful swallowing, scratchy throat, sore throat Cardiovascular Cardiac: DENIES: chest pain, orthopnea Rhythm/Rate: DENIES: irregular beat, palpitations Pulmonary Respiratory: cough, DENIES: dyspnea, sputum, tachypnea GI Upper Abdomen: DENIES: nausea, pain, vomiting Lower Abdomen: DENIES: constipation, diarrhea, pain Integumentary Skin: DENIES: rash Neurological General: DENIES: headache, numbness, tingling, weakness Physical Exam General General Nourishment: well nourished, well developed, appears stated age, no acute distress, adult General Body Habitus: well groomed Vitals and Pain First Documented Vital Signs Date Time Temp Pulse Resp B/P Pulse Ox O2 Delivery O2 Flow Rate FiO2 09/14/16 13:35 98.3 74 24 132/60 96 Nasal Cannula 2.00 Weight: Kilograms: 65.200 Height (feet): 5 Height (inches): 3.00 Triage Pain Scale: RN VS reviewed by Provider: Yes Normal Exams: Neck: Full range of motion, without adenopathy, JVD, bruits or thyromegaly CV: Regular rate and rhythm, without murmur or gallop, Pulses 2+ all extremities, capillary refill, <2 seconds all ext., no pedal edema noted Abdomen: Bowel sounds positive, soft, non-tender, non-distended, no hepatosplenomegaly, masses or bruits noted Lymphatic: No lymphadenopathy, or lymphedema noted Integumentary: No rashes, hives, or bruising noted Neurologic: Patient is alert, and oriented, cranial nerves, motor/sensory/ cerebellar, exams w/o gross deficits, to observation Psychiatric: Patient exhibits, appropriate attention, emotion and affect ENMT (brief) ENMT Brief: FOUND: TM clear, TM good light reflex, ear canals clear, mucosa moist, normal dentition, normal tonsils, NOT FOUND: nasal erythema, nasal exudate, nasal swelling, pharnyx erythema, tonsillar deviation Respiratory (brief) Respiratory: FOUND: other (Slightly diminished throughout) Differential Diagnoses Considering: Acute IA, Encephalitis, Hypo/Hyperglycemia, Hypo/Hyperkalemia, Hypo/Hypernatremia, Metabolic, Pneumonia, UTI, Other (Sepsis) Progress Results/Orders Orders Procedure Category Date Status Time EKG EKG 09/14/16 Logged Troponin I W LAB 09/14/16 Complete Hemolysis Index Blood Culture RUSH 09/14/16 In Process 14:05 Cbc W/Auto LAB 09/14/16 Complete Diff-Reflex Manual Cmp - Comprehensive LAB 09/14/16 Complete Metabolic Iv Lock (Ed Only) EDM 09/14/16 Transmitted 14:05 Chest, Pa & Lateral RAD 09/14/16 Resulted Lactate - Lactic Acid LAB 09/14/16 Complete Procalcitonin LAB 09/14/16 Complete 14:05 Lactate - Lactic Acid LAB 09/14/16 Logged 18:35 Ua, Dip Wreflex LAB 09/14/16 Logged Microsc & Stock Supervisor 14:07 Ceftriaxone I.V. (Er PHA 09/14/16 Complete Use Only) (Rocephin 15:30 Azithromycin PHA 09/14/16 Complete (Zithromax 500 Mg) 16:30 Lab Results Laboratory Tests Test 09/14/16 14:20 White Blood Count 13.3T/MM3 Red Blood Count 4.02M/MM3 Hemoglobin 12.7GM/DL Hematocrit 39.1% Mean Corpuscular Volume 97.3UM3 Mean Corpuscular Hemoglobin 31.6UUG Mean Corpuscular Hemoglobin Concent 32.5GM/DL RDW Standard Deviation 43.7FL Platelet Count 383T/MM3 Mean Platelet Volume 9.3UM3 Immature Granulocyte % (Auto) 0.5% Neutrophils (%) (Auto) 76.9% Lymphocytes (%) (Auto) 13.3% Monocytes (%) (Auto) 7.8% Eosinophils (%) (Auto) 1.3% Basophils (%) (Auto) 0.2% Absolute Immature Granulocyte (auto 0.07T/MM3 Absolute Neutrophils (auto) 10.2T/MM3 Absolute Lymphocytes (auto) 1.8T/MM3 Absolute Monocytes (auto) 1.0T/MM3 Absolute Eosinophils (auto) 0.2T/MM3 Absolute Basophils (auto) 0.0T/MM3 Urine Collection Type Pending Urine Color Pending Urine Turbidity Pending Urine pH Pending Urine Specific [place] Pending Urine Protein Pending Urine Glucose (UA) Pending Urine Ketones Pending Urine Blood Pending Urine Nitrite Pending Urine Bilirubin Pending Urine Urobilinogen Pending Urine Leukocyte Esterase Pending Turbidity < 20 Sodium Level 139MEQ/L Potassium Level 4.1MEQ/L Chloride Level 96MEQ/L Carbon Dioxide Level 34MEQ/L Anion Gap 9MEQ/L Blood Urea Nitrogen 13.0MG/DL Creatinine 0.6MG/DL Glomerular Filtration Rate Calc 94 BUN/Creatinine Ratio 22RATIO Glucose Level 75MG/DL Calculated Osmolality 267MOSM/KG Calcium Level 9.9MG/DL Total Bilirubin 0.60MG/DL Icterus Index < 2 Aspartate Amino Transf (AST/SGOT) 98U/L Alanine Aminotransferase (ALT/SGPT) 116U/L Alkaline Phosphatase 114U/L Troponin I 0.057ng/ml Total Protein 6.9G/DL Albumin 3.6G/DL Globulin 3.3G/DL Albumin/Globulin Ratio 1.1RATIO Plasma Lactate 0.7MMOL/L Procalcitonin 0.22NG/ML Chemistry Specimen Hemolysis < 15 Medications Current ED Medications Ceftriaxone Sodium/Sodium Chloride (Rocephin/NS) 100 ml @ 100 mls/hr O ONCE IV Last administered on 09/14/16 15:48; Start 09/14/16 at 15:30; Stop at 16:29; Status DC Azithromycin (ZITHROMAX 500 mg) 500 mg O ONCE PO Last administered on 16:26; Start 09/14/16 at 16:30; Stop 09/14/16 at 16:31; Status DC Progress Progress WBC is 13.3 with 76.9 neutrophils. Lactate is normal at 0.7. Procalcitonin is normal at 0.22, troponin is negative. Chest xray does how possible lingular pneumonia. Did discuss findings with Dr Fonseca. Does agree with Rocephin 1gm in ER today and starting her on Zithromax. Will have her follow up with PCP if not improving at all. Xray Xray : Reason for Exam: weakness Xray: CXR PA/Lat Interpretation: Abnormal (Increasing opacity in the lingular area) LISA BRUNO APRN Sep 14, 2016 14:11
[2016-09-14] MEDS ORDERED: MULT1TAB69 PO (14:14)
[2016-09-14] MEDS ORDERED: SIMV40TA5 PO (14:16)
[2016-09-14] MEDS ORDERED: NUT.237L33 PO (14:23)
[2016-09-14] MEDS ORDERED: [UNRECOGNIZED DRUG - CODE] PO (14:23)
[2016-09-14] MEDS ORDERED: MAG-37 PO (14:26)
[2016-09-14 14:28] LABS: BASOPHILS % (AUTO) 0.2 % (0-2); EOSINOPHILS # (AUTO) 0.2 T/MM3 (0-0.5); EOSINOPHILS % (AUTO) 1.3 % (0-4); HCT - HEMATOCRIT 39.1 % (36-46); HGB - HEMOGLOBIN 12.7 GM/DL (12-16); IMMATURE GRANULOCYTE # (AUTO) 0.07 T/MM3 (0.00-0.03); IMMATURE GRANULOCYTE % (AUTO) 0.5 % (0.0-0.5); LYMPHOCYTES # (AUTO) 1.8 T/MM3 (1-4.8); LYMPHOCYTES % (AUTO) 13.3 % (23-45); MEAN CORPUSCULAR HGB 31.6 UUG (26-34); MEAN CORPUSCULAR HGB CONC(MCHC 32.5 GM/DL (31-37); MEAN CORPUSCULAR VOLUME 97.3 UM3 (80-100); MEAN PLATELET VOLUME 9.3 UM3 (9.4-12.4); MONOCYTES % (AUTO) 7.8 % (0-9.0); NEUTROPHILS #(AUTO)-ABSOLUTE 10.2 T/MM3 (1.8-7.7); NEUTROPHILS % (AUTO) 76.9 % (33-66); RED BLOOD COUNT 4.02 M/MM3 (4.00-5.20); WBC - WHITE BLOOD COUNT 13.3 T/MM3 (4.5-11.0)
[2016-09-14] MEDS ORDERED: INSU100V13 SQ (14:30)
[2016-09-14 14:38] LABS: ALBUMIN 3.6 G/DL (3.5-5.0); ALBUMIN/GLOBULIN RATIO 1.1 RATIO (1.1-2.2); ALKALINE PHOSPHATASE 114 U/L (38-126); ALT (SGPT) 116 U/L (9-52); ANION GAP 9 MEQ/L (5-15); AST (SGOT) 98 U/L (14-36); BUN/CREATININE RATIO 22 RATIO (6-26); CALCIUM 9.9 MG/DL (8.4-10.2); CHLORIDE 96 MEQ/L (98-107); CO2 - CARBON DIOXIDE 34 MEQ/L (22-30); CREATININE 0.6 MG/DL (0.7-1.2); GLOMERULAR FILTRATION RATE 94; GLUCOSE 75 MG/DL (65-110); POTASSIUM 4.1 MEQ/L (3.6-5); SODIUM 139 MEQ/L (134-144); TOTAL PROTEIN 6.9 G/DL (6.3-8.2)
[2016-09-14 14:39] LABS: LACTATE - LACTIC ACID 0.7 MMOL/L (0.6-2.2)
--- OUTSIDE RECORDS SUMMARY | 2016-09-14 14:41 | XMS REPORT | Continuity of Care Document ---
Author Author [facility] Organization [facility] Address Unknown Phone Unavailable Support Name Relationship Address Phone MARIANA SMART MD Caregiver [address] [place] [address] SEBASTIAN PARSONS MD Caregiver [address] [place] [phone] JOSE FALLON DPOA Next Of Kin [address] [place], [place] [id number] Insurance Providers Payer Name Policy Number Subscriber Name Relationship Medicareadvantra Ppo [id number] Kurt Samuel 16 Self Advance Directives Directive [...] F (96.8 - 99.1) Temperature (Calculated Celsius) 36.82674 degrees C (36.0 - 37.3) Temperature Source [...] 26, 2014 12:30pm 489.9 NG/ML H 0-61.5 FW-Bko-J-Type Natriuretic Peptide March 26, 2014 12:30pm 556 [...] Has specimen been collected/obtained? Y Urine Specific [place] March 26, 2014 12:15pm 1.025 - Has [...] Coli Name: KURT SAMUEL Katina Unit #: [id number] : 1930 Sex: F Loc / Svc: ED DOS: 03/26/14 Signed Report #: [id number] DIAGNOSTIC IMAGING REPORT TYPE OF EXAM: CHEST, [...] procedures. Encounters Encounter Location Date/Time Discharged Inpatient [facility] 03/26/14 4:19pm Recent Diagnosis Dizziness and Giddiness UTI (urinary tract infection) Dehydration Rhabdomyolysis
--- NOTE | 2016-09-14 14:55 | DI ---
INDICATION: ITS.REASON: cough, fever PROCEDURE: CHEST 2-VIEWS UPRIGHT (PA \T\ LAT) Encounter: Initial COMPARISON: June 10, 2016 FINDINGS: Slight worsening opacity in the lingular area. Right lung appears stable and clear. No pleural effusion or pneumothorax. Prior CABG. Heart size and mediastinal contours are stable. Hiatal hernia. Chronic appearing upper lumbar compression deformity. Impression: Increasing opacity in the lingular area could be due to atelectasis or pneumonia. .
[2016-09-14] MEDS ORDERED: CEFTRIAXONE I.V. (ER USE ONLY) 1 G in NORMAL SALINE 100 ML IV ONE (15:30)
[2016-09-14] MEDS ORDERED: AZIT250T PO (15:57)
[2016-09-14] MEDS ORDERED: AZITHROMYCIN 500 MG TABLET PO ONE (16:30)
[2016-09-14 16:35] VITALS: BP 137/63; PULSE 71; RESP 18; TEMP 98.3; O2SAT 98
[2016-09-15] MEDS ORDERED: NS 50ML IV PRN (01:15)
== END 2016-09-14 16:35 | disposition home or self-care (01) ==
LOC: ED 13:30
DX: J18.1 Lobar pneumonia, unspecified organism (principal)
CPT/HCPCS: 36415; 71020; 80053; 83605; 84145; 84484; 85025; 87040; 93005; 96365; 99284; A9270; J0696; J7050

== ENCOUNTER 2016-09-18 22:20 | Emergency (ER) | payer MEDICARE ==
[~2016-09-18] VITALS: Ht 160 cm; Wt 65.6 kg
[2016-09-18 22:20] VITALS: Ht 160 cm; Wt 65.6 kg
--- OUTSIDE RECORDS SUMMARY | 2016-09-18 22:23 | XMS REPORT | Continuity of Care Document ---
Author Author [facility] Organization [facility] Address Unknown Phone Unavailable Support Name Relationship Address Phone SEBASTIAN PARSONS MD Caregiver [address] [place] [address] Unavailable CLOVIS MCLEOD MD Caregiver [address] [place] [address] Unavailable JOSE FALLON Next Of Kin [address] [place] [address] Insurance Providers Guarantor Kurt Samuel Address [address] [place] [address] Email DENIED/09/14/16 Payer Medicareadvantra Ppo Policy Number [id number] Subscriber's Name Kurt Samuel Relationship 18 Self Group Number [id number] Chief Complaint and Reason for Visit Chief Complaint Cough,Fever,Flu,URI Reason for Visit Lingular pneumonia Problems Active Problems Medical Problem Onset Date Status Dehydration Unknown Acute Dizziness and Giddiness Unknown Acute Elevated CK Unknown Acute Elevated myoglobin level Unknown Acute Elevated myoglobin level Unknown Acute Near syncope Unknown Acute Rhabdomyolysis 03/28/2014 Acute UTI (urinary tract infection) Unknown Acute Past Problems Medical Problem Onset Date Lingular pneumonia Unknown Medications Current Home Medications Medication Dose Units Route Directions Days Qty Instructions Start Date Albuterol/Ipratropium (Combivent Respimat Inhal [place]) 120 Puff/4 Gm Inha 2 Puff Inhalation Every 4 Hours as needed for Shortness Of Air Aspirin 81 Mg Tab.chew 81 Mg Oral Daily 11/23/14 Azithromycin (Zithromax) 250 Mg Tablet 1 Tab Oral Daily 4 Tablet TAKE TWO ON DAY ONE, THEN ONE TAB DAILY UNTIL ALL TAKEN. 09/14/16 Beclomethasone Dipropionate (Qvar 80) 8.7 Gm Aer.w.adap 2 Puff Oral Inhalation Twice A Day 06/10/16 Benazepril Hcl (Lotensin) 10 Mg Tablet 10 Mg Oral Daily 11/03/10 Citalopram Hydrobromide (Citalopram Hbr) 20 Mg Tablet 20 Mg Oral Daily 06/10/16 Diltiazem Hcl (Cartia Xt) 120 Mg Cap.sr.24h 1 Cap Oral Daily 22/05 Gabapentin 100 Mg Capsule 100 Mg Oral Three Times A Day 06/10/16 Guaifenesin/Dextromethorphan (Diabetic Tussin Dm Liquid) 118 Ml Liquid 10 Ml Oral Every 4 Hours as needed for Cough 09/14/16 Insulin Aspart (Novolog) 100 Unit/Ml Inj 10 Unit Sub-Q Give At Noon 06/10/16 Insulin Aspart (Novolog) 100 Unit/Ml Inj 6-10 Unit Sub-Q As Needed 09/14/16 Insulin Detemir (Levemir) 100 Unit/Ml Inj 18 Unit Sub-Q Every Evening 06/10/16 Latanoprost 2.5 Ml Drops 1 Drop Right Eye Only Every Evening 09/21 Mag Hydrox/Al Hydrox/Simeth (Maalox Advanced Suspension) 355 Ml Oral.susp 30 Ml Oral Every 2 Hours as needed for Heartburn 09/14/16 Multivitamin (Multivitamins) 1 Each Tablet 1 Tab Oral Daily 09/14 Naproxen Sodium 220 Mg Tablet 220 Mg Oral Daily as needed for Pain 06/10/16 Nut.tx.gluc.intoler,Lac-Fr,Soy (Glucerna) 237 Ml Liquid 237 Ml Oral As Needed 09/14/16 Quetiapine Fumarate (Seroquel) 25 Mg Tablet 12.5 Mg Oral Bedtime 06/10/16 Simvastatin 40 Mg Tablet 40 Mg Oral Bedtime 09/14/16 Past Home Medications Medication Directions Ordered Status [...] Problem Response Recorded Date/Time Onset Date Status Hx Substance Use No 09/14/2016 4:08pm Not Applicable Not Applicable Hx Alcohol Use Y OCCASIONAL 09/14/2016 4:08pm Not Applicable Not Applicable Has the pt used tobacco in the last 12 months No 06/09/2016 4:32pm Not Applicable Not Applicable Tobacco Usage none 11/28/2014 3:19pm Not Applicable Not Applicable Query Response Start Date Stop Date Smoking Status Never smoker Hospital Discharge Instructions No hospital discharge instructions. Plan of Care Discharge Date 09/14/16 4:35pm Disposition 01 DISCHARGED HOME, SELF-CARE Condition at Discharge Stable Instructions/Education Provided Pneumonia (ED) Prescriptions See Medication Section Referrals SEBASTIAN PARSONS MD Address: [address] [place] [address] [place] [address] Additional Instructions/Education Take the Zithromax as prescribed. We did give a dose of Rocephin in ER and also have given her the first dose of Zithromax as well. Please continue to administer O2 at 2L per NC to maintain sats above 92%. Follow up with primary care provider if any further concerns. Sepsis labs today are all normal. Care Plan and Goals Physician Care Plan Problem:Pneumonia Goal: Follow up with primary care provider Instructions: Take medications and follow care plan as discussed/written Functional Status No functional status results. Allergies, Adverse Reactions, Alerts Allergen Type Severity Reaction Status Last Updated Penicillin Allergy Unknown Active 09/14/16 ANTIHISTAMINES Allergy Unknown Active 09/14/16 Immunizations Query Response on File Recorded Date/Time Hx Influenza Vaccination Y Feb 2016 06/09/16 4:32pm Hx Pneumococcal Vaccination No 06/09/16 4:32pm Hx Influenza Vaccination Y Feb 2016 06/09/16 4:32pm Influenza Vaccine Hx feb 2016 09/14/16 4:08pm Vital Signs Acute Vital Signs Vital Response Date/Time Temperature (Fahrenheit) 98.3 deg F (96.8 - 99.1) 09/14/2016 4:35pm Temperature (Calculated Celsius) 36.98084 degrees C (36.0 - 37.3) 09/14/2016 4:35pm Pulse Rate (adult) 71 bpm (60 - 100) 09/14/2016 4:35pm Respiratory Rate 18 breaths/min (10 - 20) 09/14/2016 4:35pm O2 Sat by Pulse Oximetry 98 % (90 - 100) 09/14/2016 4:35pm Oxygen Flow Rate 2.00 L/min 09/14/2016 4:35pm Blood Pressure 137/63 mm Hg 09/14/2016 4:35pm Height (Feet) 5 feet 09/14/2016 1:35pm Height (Inches) 3.00 inches 09/14/2016 1:35pm Weight (Kilograms) 65.200 kg 09/14/2016 1:35pm Body Mass Index (BMI) 25.0 09/14/2016 1:35pm Results Laboratory Results Test Name Result Units Flags Reference Collection Date/Time Result Date/ Time Comments White Blood Count 13.3 T/MM3 H 4.5-11.0 09/14/2016 2:20pm 09/14/2016 2: 28pm Red Blood Count 4.02 M/MM3 4.00-5.20 09/14/2016 2:20pm 09/14/2016 2: 28pm Hemoglobin 12.7 GM/DL 12-16 09/14/2016 2:09/14/2016 2:28pm Hematocrit 39.1 % 36-46 09/14/2016 2:09/14/2016 2:28pm Mean Corpuscular Volume 97.3 UM3 80-100 09/14/2016 2:09/14/2016 2: 28pm Mean Corpuscular Hemoglobin 31.6 UUG 26-34 09/14/2016 2:2016 2:28pm Mean Corpuscular Hemoglobin Concent 32.5 GM/DL 31-37 09/14/2016 2:09/14/2016 2:28pm RDW Standard Deviation 43.7 FL 36.9-50.2 09/14/2016 2:09/14/2016 2 :28pm Platelet Count 383 T/MM3 130-400 09/14/2016 2:20pm 09/14/2016 2:28pm Mean Platelet Volume 9.3 UM3 L 9.4-12.4 09/14/2016 2:2009/14/2016 2: 28pm Neutrophils (%) (Auto) 76.9 % H 33-66 09/14/2016 2:2009/14/2016 2: 28pm Lymphocytes (%) (Auto) 13.3 % L 23-45 09/14/2016 2:2009/14/2016 2: 28pm Monocytes (%) (Auto) 7.8 % 0-9.0 09/14/2016 2:2009/14/2016 2:28pm Eosinophils (%) (Auto) 1.3 % 0-4 09/14/2016 2:2009/14/2016 2:28pm Basophils (%) (Auto) 0.2 % 0-2 09/14/2016 2:2009/14/2016 2:28pm Immature Granulocyte % (Auto) 0.5 % 0.0-0.5 09/14/2016 2:202016 2:28pm Absolute Neutrophils (auto) 10.2 T/MM3 H 1.8-7.7 09/14/2016 2:2009/14 2:28pm Absolute Lymphocytes (auto) 1.8 T/MM3 1-4.8 09/14/2016 2:2016 2:28pm Absolute Monocytes (auto) 1.0 T/MM3 H 0-0.8 09/14/2016 2:2016 2:28pm Absolute Eosinophils (auto) 0.2 T/MM3 0-0.5 09/14/2016 2:202016 2:28pm Absolute Basophils (auto) 0.0 T/MM3 0-0.2 09/14/2016 2:09/14/2016 2:28pm Absolute Immature Granulocyte (auto 0.07 T/MM3 H 0.00-0.03 09/14/2016 2: 2009/14/2016 2:28pm Icterus Index < 2 0-7 09/14/2016 2:09/14/2016 2:38pm Chemistry Specimen Hemolysis < 15 0-25 09/14/2016 2:20pm 09/14/2016 2 :38pm 0-25: Specimen Exhibited No Hemolysis. Turbidity < 20 0-20 09/14/2016 2:20pm 09/14/2016 2:38pm Sodium Level 139 MEQ/L 134-144 09/14/2016 2:09/14/2016 2:38pm Potassium Level 4.1 MEQ/L 3.6-5 09/14/2016 2:09/14/2016 2:38pm Chloride Level 96 MEQ/L L 98-107 09/14/2016 2:09/14/2016 2:38pm Carbon Dioxide Level 34 MEQ/L H 22-30 09/14/2016 2:09/14/2016 2: 38pm Anion Gap 9 MEQ/L 5-15 09/14/2016 2:09/14/2016 2:38pm Blood Urea Nitrogen 13.0 MG/DL 7-17 09/14/2016 2:09/14/2016 2: 38pm Creatinine 0.6 MG/DL L 0.7-1.2 09/14/2016 2:09/14/2016 2:38pm BUN/Creatinine Ratio 22 RATIO 6-26 09/14/2016 2:09/14/2016 2:38pm Glomerular Filtration Rate Calc 94 09/14/2016 2:09/14/2016 2: 38pm Glucose Level 75 MG/DL 65-110 09/14/2016 2:09/14/2016 2:38pm Calculated Osmolality 267 MOSM/KG 261-280 09/14/2016 2:09/14/2016 2:38pm Calcium Level 9.9 MG/DL 8.4-10.2 09/14/2016 2:09/14/2016 2:38pm Total Bilirubin 0.60 MG/DL 0.20-1.30 09/14/2016 2:09/14/2016 2: 38pm Alkaline Phosphatase 114 U/L 38-126 09/14/2016 2:09/14/2016 2: 38pm Total Protein 6.9 G/DL 6.3-8.2 09/14/2016 2:09/14/2016 2:38pm Albumin 3.6 G/DL 3.5-5.0 09/14/2016 2:09/14/2016 2:38pm Globulin 3.3 G/DL 2.4-3.6 09/14/2016 2:09/14/2016 2:38pm Albumin/Globulin Ratio 1.1 RATIO 1.1-2.2 09/14/2016 2:20pm 09/14/2016 2 :38pm Aspartate Amino Transf (AST/SGOT) 98 U/L H 14-36 09/14/2016 2:20pm 09/14 2:38pm Alanine Aminotransferase (ALT/SGPT) 116 U/L H 9-52 09/14/2016 2:20pm 03/2017 2:38pm Troponin I 0.057 ng/ml 0-0.12 09/14/2016 2:20pm 09/14/2016 2:48pm Troponin values with a difference of 55% increase from orginal troponin value represent a true biological DELTA value. (%increase Calc=Orginal Troponin value, divided by subsequent Troponin value, multiplied by 100) Plasma Lactate 0.7 MMOL/L 0.6-2.2 09/14/2016 2:20pm 09/14/2016 2:39pm Procalcitonin 0.22 NG/ML 09/14/2016 2:20pm 09/14/2016 2:57pm PCT </= 0.5 ng/mL - sepsis not likely; PCT >0.5 and </=2 ng/mL - sepsis possible; PCT >2 ng/mL - sepsis likely; PCT >/=10 ng/mL - systemic inflammatory response - sepsis or septic shock highly indicated. Microbiology Results Procedure Source Organism/Result Collection Date/Time Result Date/Time Result Status Blood Culture Peripheral/Iv Start CULTURE INITIATED - RESULTS PENDING 09/14 2:20pm 09/14/2016 2:25pm Preliminary Name: KURT SAMUEL Unit #: [id number] : 1930 Sex: F Admit Date: Loc / Svc: ED Discharge Date: DIAGNOSTIC IMAGING REPORT Report #: [id number] [facility] TONEY Moreno INDICATION: ITS.REASON: cough, fever PROCEDURE: CHEST 2-VIEWS UPRIGHT (PA \T\ LAT) Encounter: Initial COMPARISON: June 10, 2016 FINDINGS: Slight worsening opacity in the lingular area. Right lung appears stable and clear. No pleural effusion or pneumothorax. Prior CABG. Heart size and mediastinal contours are stable. Hiatal hernia. Chronic appearing upper lumbar compression deformity. Impression: Increasing opacity in the lingular area could be due to atelectasis or pneumonia. . Procedures No known history of procedures. Encounters Encounter Location Arrival/Admit Date Discharge/Depart Date Attending Provider Departed Emergency Room [facility] 09/14/16 1:30pm 09/14/16 4: 35pm CLOVIS MCLEOD MD Recent Diagnosis
--- OUTSIDE RECORDS SUMMARY | 2016-09-18 22:24 | XMS REPORT | Continuity of Care Document ---
Author Author [facility] Organization [facility] Address Unknown Phone Unavailable Support Name Relationship Address Phone MARIANA SMART MD Caregiver [address] [address] SEBASTIAN PARSONS MD Caregiver [address] [place] [phone] JOSE FALLON DPOA Next Of Kin [address] [place], [place] [id number] Insurance Providers Payer Name Policy Number Subscriber Name Relationship Medicareadvantra Ppo [id number] Kurt Samuel 16 Self Advance Directives Directive [...] F (96.8 - 99.1) Temperature (Calculated Celsius) 36.84834 degrees C (36.0 - 37.3) Temperature Source [...] 26, 2014 12:30pm 489.9 NG/ML H 0-61.5 CO-Qkq-I-Type Natriuretic Peptide March 26, 2014 12:30pm 556 [...] Has specimen been collected/obtained? Y Urine Specific [place] March 26, 2014 12:15pm 1.025 - Has [...] Coli Name: KURT SAMUEL Katina Unit #: [id number] : 1930 Sex: F Loc / Svc: ED DOS: 03/26/14 Signed Report #: [id number] DIAGNOSTIC IMAGING REPORT TYPE OF EXAM: CHEST, [...] procedures. Encounters Encounter Location Date/Time Discharged Inpatient [facility] 03/26/14 4:19pm Recent Diagnosis Dizziness and Giddiness UTI (urinary tract infection) Dehydration Rhabdomyolysis
--- NOTE | 2016-09-18 22:28 | ERPDOC ---
Departure Disposition Decision Date: Sep 18, 2016 Disposition Decision Time: 23:42 Disposition: 01 DISCHARGED HOME, SELF-CARE Impression Impression Impression: Primary Impression: Hypoxia Severity: Moderate Condition: Stable Seen By: Physician only Referrals: SEBASTIAN PARSONS MD (Family) Follow-up with Dr. Parsons on Wednesday Patient Instructions: Dyspnea (ED) Problems/Meds/Labs Reviewed?: Yes Medications reviewed and manag: Yes Follow up care ordered?: Yes Mental Status: Alert, Oriented HPI - Dyspnea General Stated Complaint: HYPOXIA Time Seen by Provider: 22:28 Source: patient, EMS, EMS notes reviewed, care home records, old records Exam Limitations: no limitations HPI - Dyspnea Initial Comments Patient is an 86-year-old female presents emergency room for evaluation of hypoxia. Patient was recently seen in the emergency department complete workup for hypoxia was sent home on 2 L by nasal cannula with a Z-Jayjay. Patient's finished her antibiotic yesterday. jail felt patient was hypoxic checked an O2 sat getting 88% on her 2 L had a temperature up to 5 L. EMS was called on arrival patient was able to turn back to 2 L without issue, patient without complaint patient brought to the ER for evaluation Allergies: Coded Allergies: Penicillins (Verified Allergy, Unknown, 09/18/16) Uncoded Allergies: ANTIHISTAMINES (Allergy, Unknown, 09/14/16) Past History Past Medical History Metabolic: diabetes, hypercholesterolemia, hypertension ENMT: other Cardiac: CAD, PSVT Hx Echocardiogram: No Respiratory: COPD, pneumonia Female: UTI Surgical History General: hernia Cardiac: cardiac bypass Reproductive/: other Joint: knee Family History Family PMH: FOUND: CAD, CVA, cancer, diabetes, hypertension Vaccines Hx Influenza Vaccination: Yes (Feb 2016) Hx Pneumococcal Vaccination: No Social History Smoking Status: Never smoker Substance Use Type: does not use Alcohol Intake: none Review of Systems Constitutional Constitutional: DENIES: appetite decrease, chills, dizziness, fever, weakness Eyes Vision: DENIES: double vision, loss of visual rapp ENMT Sinuses: DENIES: congestion, rhinorrhea Mouth/Throat: DENIES: scratchy throat, sore throat Cardiovascular Cardiac: dyspnea on exertion, DENIES: chest pain Rhythm/Rate: DENIES: tachycardia Pulmonary Respiratory: dyspnea, DENIES: cough, sputum, tachypnea GI Upper Abdomen: DENIES: nausea, pain, vomiting Lower Abdomen: DENIES: constipation, diarrhea, pain General: DENIES: frequency, urgency Musculoskeletal General: DENIES: cramps, pain, weakness Integumentary Skin: DENIES: color change, itching, rash Endocrine Endocrine: DENIES: heat/cold intolerance Hematologic/Lymphatic Hematologic/Lymphatic: DENIES: anemia Physical Exam General General Nourishment: well nourished, well developed General Body Habitus: well groomed Vitals and Pain First Documented Vital Signs Date Time Temp Pulse Resp B/P Pulse Ox O2 Delivery O2 Flow Rate FiO2 09/18/16 22:20 98.1 76 24 135/62 96 Nasal Cannula 2.00 Weight: Kilograms: Height (feet): 5 Height (inches): 3.00 Triage Pain Scale: RN VS reviewed by Provider: Yes Eyes (brief) Eyes Brief: found: EOMI ENMT (brief) ENMT Brief: FOUND: mucosa moist, normal dentition, NOT FOUND: nasal erythema, pharnyx erythema, tonsillar deviation Neck (brief) Neck: NOT FOUND: adenopathy, spasm, tenderness Respiratory (brief) Respiratory: FOUND: clear all rapp, equal bilaterally, NOT FOUND: rales, wheezes Cardiovascular (brief) Cardiac: FOUND: regular rate, regular rhythm Capillary Refill: <2 sec Abdomen (brief) Abdominal Brief: FOUND: soft Musculoskeletal (brief) Musculoskeletal Brief: NOT FOUND: spasm, tenderness Integumentary (brief) Integumentary Brief: FOUND: dry, pink, warm, NOT FOUND: rash Neurologic (brief) Neurological Brief: FOUND: CN w/o gross def to obs, motor-no gross deficits, sensory-no gross deficits Psychiatric (brief) Psychiatric Brief: FOUND: alert, oriented Differential Diagnoses Considering: Acute Bronchitis, Acute TN, Acute Respiratory Failure, Asthma Exacerbation, CHF, COPD Exacerbation, Pneumonia, Pneumothorax Progress Results/Orders Orders Procedure Category Date Status Time Cbc W/Auto LAB 09/18/16 Complete Diff-Reflex Manual 22:35 Bmp - Basic Metabolic LAB 09/18/16 Complete Panel 22:35 Chest, Pa & Lateral RAD 09/18/16 Resulted 22:35 Lab Results Laboratory Tests Test 09/18/16 22:57 White Blood Count 13.4T/MM3 Red Blood Count 3.59M/MM3 Hemoglobin 11.5GM/DL Hematocrit 35.3% Mean Corpuscular Volume 98.3UM3 Mean Corpuscular Hemoglobin 32.0UUG Mean Corpuscular Hemoglobin Concent 32.6GM/DL RDW Standard Deviation 43.5FL Platelet Count 340T/MM3 Mean Platelet Volume 9.1UM3 Immature Granulocyte % (Auto) 0.7% Neutrophils (%) (Auto) 76.4% Lymphocytes (%) (Auto) 13.8% Monocytes (%) (Auto) 7.4% Eosinophils (%) (Auto) 1.6% Basophils (%) (Auto) 0.1% Absolute Immature Granulocyte (auto 0.09T/MM3 Absolute Neutrophils (auto) 10.3T/MM3 Absolute Lymphocytes (auto) 1.9T/MM3 Absolute Monocytes (auto) 1.0T/MM3 Absolute Eosinophils (auto) 0.2T/MM3 Absolute Basophils (auto) 0.0T/MM3 Turbidity < 20 Sodium Level 135MEQ/L Potassium Level 4.5MEQ/L Chloride Level 94MEQ/L Carbon Dioxide Level 34MEQ/L Anion Gap 7MEQ/L Blood Urea Nitrogen 14.0MG/DL Creatinine 0.5MG/DL Glomerular Filtration Rate Calc 116 BUN/Creatinine Ratio 28RATIO Glucose Level 146MG/DL Calculated Osmolality 264MOSM/KG Calcium Level 9.6MG/DL Icterus Index < 2 Chemistry Specimen Hemolysis < 15 Progress Progress On arrival patient's O2 sats are back to her normal 2 L nasal cannula, patient' s laboratories and x-ray are unchanged. Did discuss case with Dr. Worthington located discharge patient back home have patient follow-up with Dr. Parsons on Wednesday Xray Xray : Xray: CXR PA/Lat Interpretation: Abnormal, Interpreted by Me (stable and unchanged from prior ) CLOVIS MCLEOD MD Sep 18, 2016 22:28
[2016-09-18 23:02] LABS: HCT - HEMATOCRIT 35.3 % (36-46); HGB - HEMOGLOBIN 11.5 GM/DL (12-16); LYMPHOCYTES % (AUTO) 13.8 % (23-45); MEAN CORPUSCULAR HGB CONC(MCHC 32.6 GM/DL (31-37); MEAN CORPUSCULAR VOLUME 98.3 UM3 (80-100); MEAN PLATELET VOLUME 9.1 UM3 (9.4-12.4); NEUTROPHILS % (AUTO) 76.4 % (33-66); RED BLOOD COUNT 3.59 M/MM3 (4.00-5.20); WBC - WHITE BLOOD COUNT 13.4 T/MM3 (4.5-11.0)
[2016-09-18 23:03] LABS: BASOPHILS % (AUTO) 0.1 % (0-2); EOSINOPHILS # (AUTO) 0.2 T/MM3 (0-0.5); EOSINOPHILS % (AUTO) 1.6 % (0-4); IMMATURE GRANULOCYTE # (AUTO) 0.09 T/MM3 (0.00-0.03); IMMATURE GRANULOCYTE % (AUTO) 0.7 % (0.0-0.5); LYMPHOCYTES # (AUTO) 1.9 T/MM3 (1-4.8); MONOCYTES % (AUTO) 7.4 % (0-9.0); NEUTROPHILS #(AUTO)-ABSOLUTE 10.3 T/MM3 (1.8-7.7)
--- NOTE | 2016-09-18 23:05 | NUR ---
IMAGING PT TO IMAGING VIA CART. NO SIGN OF DISTRESS. 0.5L/NC.
--- OUTSIDE RECORDS SUMMARY | 2016-09-18 23:07 | XMS REPORT | Continuity of Care Document ---
Author Author [facility] Organization [facility] Address Unknown Phone Unavailable Support Name Relationship Address Phone MARIANA SMART MD Caregiver [address] [place] [address] SEBASTIAN PARSONS MD Caregiver [address] [place] [phone] JOSE FALLON DPOA Next Of Kin [address] [place], [place] [id number] Insurance Providers Payer Name Policy Number Subscriber Name Relationship Medicareadvantra Ppo [id number] Kurt Samuel 16 Self Advance Directives Directive [...] F (96.8 - 99.1) Temperature (Calculated Celsius) 36.19013 degrees C (36.0 - 37.3) Temperature Source [...] 26, 2014 12:30pm 489.9 NG/ML H 0-61.5 AR-Xdu-K-Type Natriuretic Peptide March 26, 2014 12:30pm 556 [...] Has specimen been collected/obtained? Y Urine Specific [place] March 26, 2014 12:15pm 1.025 - Has [...] Coli Name: KURT SAMUEL Katina Unit #: [id number] : 1930 Sex: F Loc / Svc: ED DOS: 03/26/14 Signed Report #: [id number] DIAGNOSTIC IMAGING REPORT TYPE OF EXAM: CHEST, [...] procedures. Encounters Encounter Location Date/Time Discharged Inpatient [facility] 03/26/14 4:19pm Recent Diagnosis Dizziness and Giddiness UTI (urinary tract infection) Dehydration Rhabdomyolysis
[2016-09-18 23:12] LABS: ANION GAP 7 MEQ/L (5-15); BUN/CREATININE RATIO 28 RATIO (6-26); CALCIUM 9.6 MG/DL (8.4-10.2); CHLORIDE 94 MEQ/L (98-107); CO2 - CARBON DIOXIDE 34 MEQ/L (22-30); CREATININE 0.5 MG/DL (0.7-1.2); GLOMERULAR FILTRATION RATE 116; GLUCOSE 146 MG/DL (65-110); POTASSIUM 4.5 MEQ/L (3.6-5); SODIUM 135 MEQ/L (134-144)
--- NOTE | 2016-09-18 23:13 | NUR ---
IMAGING PT RETURN TO ROOM AT THIS TIME VIA CART. NO SIGN OF DISTRESS AT THIS TIME.
--- NOTE | 2016-09-18 23:25 | NUR ---
OUTPUT PT ASSISTED TO BED FINN. SCANT AMOUNT OUTPUT.
--- NOTE | 2016-09-18 23:50 | NUR ---
REPORT CALLED REPORT CALLED TO [facility] AT THIS TIME. SPOKE TO LETITIA ROSA. WILL BE SENDING TRANSPORTATION.
[2016-09-19 00:56] VITALS: BP 131/60; PULSE 74; RESP 24; TEMP 98.1; O2SAT 93
--- NOTE | 2016-09-19 00:56 | NUR ---
DEPART PT DEPARTED IN CARE OF [facility] TRANSPORTATION PROVIDER. REPORT CALLED TO LETITIA ROSA AT [facility] AT EARLIER TIME. PT ASSISTED TO WHEEL CHAIR - ASSIST X2. NO SIGN OF DISTRESS.
--- NOTE | 2016-09-19 20:59 | DI ---
INDICATION: ITS.REASON: Cough, SOA PROCEDURE: CHEST 2-VIEWS UPRIGHT (PA \T\ LAT) Encounter: Initial COMPARISON: September 14, 2016 FINDINGS: Lungs are stable in appearance. No new or worsening airspace disease. No pneumothorax or effusion. Heart size and mediastinal contours are stable. Prior CABG. Impression: No change .
== END 2016-09-19 00:56 | disposition home or self-care (01) ==
LOC: ED 22:20
DX: R09.02 Hypoxemia (principal); J44.9 Chronic obstructive pulmonary disease, unspecified
CPT/HCPCS: 36415; 80048; 85025

== ENCOUNTER → 2016-09-18 | Outpatient (CLI) | payer MEDICARE ==
[~2016-09-18] MED LIST changes: +AZIT250T PO; -AZIT500T5 PO; -BUDE180A INH; -INSU100C14 SQ; +MAG-37 PO; -MULT1CAP47 PO; +MULT1TAB69 PO; +NUT.237L33 PO; -PRED20TA PO; -SIMV40TA2 PO; +SIMV40TA5 PO; +[UNRECOGNIZED DRUG - CODE] PO
[2016-09-18 21:12] LABS: INFLUENZA A AG SCREEN NEGATIVE (NEGATIVE); INFLUENZA B AG SCREEN NEGATIVE (NEGATIVE)
== END ==
LOC: LABN.KB 20:13
PROVIDERS: ATTEND Family Medicine
DX: R50.9 Fever, unspecified (principal); R05 Cough
CPT/HCPCS: 87400

== ENCOUNTER 2016-09-22 16:50 | Inpatient (IN) | payer MEDICARE ==
[~2016-09-22] VITALS: Ht 160 cm; Wt 65.8 kg
--- OUTSIDE RECORDS SUMMARY | 2016-09-22 16:55 | XMS REPORT | Continuity of Care Document ---
Author Author Josh [facility] Organization [facility] Address Unknown Phone Unavailable Support Name Relationship Address Phone MARIANA SMART MD Caregiver [address] [place] [address] SEBASTIAN PARSONS MD Caregiver [address] [place] [phone] JOSE AFLLON DPOA Next Of Kin [address] [place], [place] [id number] Insurance Providers Payer Name Policy Number Subscriber Name Relationship Medicareadvantra Ppo [id number] Kurt Samuel 16 Self Advance Directives Directive [...] F (96.8 - 99.1) Temperature (Calculated Celsius) 36.66652 degrees C (36.0 - 37.3) Temperature Source [...] 26, 2014 12:30pm 489.9 NG/ML H 0-61.5 BW-Nlh-B-Type Natriuretic Peptide March 26, 2014 12:30pm 556 [...] Has specimen been collected/obtained? Y Urine Specific [place] March 26, 2014 12:15pm 1.025 - Has [...] Coli Name: KURT SAMUEL Katina Unit #: [id number] : 1930 Sex: F Loc / Svc: ED DOS: 03/26/14 Signed Report #: [id number] DIAGNOSTIC IMAGING REPORT TYPE OF EXAM: CHEST, [...] procedures. Encounters Encounter Location Date/Time Discharged Inpatient [facility] 03/26/14 4:19pm Recent Diagnosis Dizziness and Giddiness UTI (urinary tract infection) Dehydration Rhabdomyolysis
--- OUTSIDE RECORDS SUMMARY | 2016-09-22 16:55 | XMS REPORT | Continuity of Care Document ---
Author Author [facility] Organization [facility] Address Unknown Phone Unavailable Support Name Relationship Address Phone SEBASTIAN PARSONS MD Caregiver [address] [place] [address] Unavailable CLOVIS MCLEOD MD Caregiver [address] [place] [address] Unavailable JOSE FALLON Next Of Kin [address] [place] [address] Insurance Providers Guarantor Kurt Samuel Address [address] [place] [address] Email DENIED/09/18/16 Payer Medicareadvantra Ppo Policy Number [id number] Subscriber's Name Kurt Samuel Relationship 16 Self Group Number [id number] Chief Complaint and Reason for Visit Chief Complaint Cough,Fever,Flu,URI Reason for Visit Hypoxia Problems Active Problems Medical Problem Onset Date Status Dehydration Unknown Acute Dizziness and Giddiness Unknown Acute Elevated CK Unknown Acute Elevated myoglobin level Unknown Acute Elevated myoglobin level Unknown Acute Near syncope Unknown Acute Rhabdomyolysis 03/28/2014 Acute UTI (urinary tract infection) Unknown Acute Past Problems Medical Problem Onset Date Hypoxia Unknown Lingular pneumonia Unknown Medications Current Home Medications Medication Dose Units Route Directions Days Qty Instructions Start Date Albuterol/Ipratropium (Combivent Respimat Inhal [place]) 120 Puff/4 Gm Inha 2 Puff Inhalation [...] Onset Date Status Hx Substance Use No 09/18/2016 10:50pm Not Applicable Not Applicable Hx Alcohol Use Y OCCASIONAL 09/18/2016 10:50pm Not Applicable Not Applicable Has the pt used tobacco in the last 12 months No 06/09/2016 4:32pm Not Applicable Not Applicable Tobacco Usage none 11/28/2014 3:19pm Not Applicable Not Applicable Query Response Start Date Stop Date Smoking Status Unknown if ever smoked Hospital Discharge Instructions No hospital discharge instructions. Plan of Care Discharge Date 09/19/16 12:56am Disposition 01 DISCHARGED HOME, SELF-CARE Condition at Discharge Stable Instructions/Education Provided Dyspnea (ED) Prescriptions See Medication Section Referrals SEBASTIAN PARSONS MD Address: [address] [place] [address] [place] [address] Note: Follow-up with Dr. Parsons on Wednesday Care Plan and Goals Physician Care Plan Problem: Dyspnea Goal: Follow up with primary care provider Instructions: Take medications and follow care plan as discussed/written Functional Status No functional status results. Allergies, Adverse Reactions, Alerts Allergen Type Severity Reaction Status Last Updated Penicillin Allergy Unknown Active 09/18/16 ANTIHISTAMINES Allergy Unknown Active 09/14/16 Immunizations Query Response on File Recorded Date/Time Hx Influenza Vaccination Y Feb 2016 06/09/16 4:32pm Hx Pneumococcal Vaccination No 06/09/16 4:32pm Hx Influenza Vaccination Y Feb 2016 06/09/16 4:32pm Influenza Vaccine Hx feb 2016 09/18/16 10:50pm Vital Signs Acute Vital Signs Vital Response Date/Time Temperature (Fahrenheit) 98.1 deg F (96.8 - 99.1) 09/19/2016 12:56am Temperature (Calculated Celsius) 36.25030 degrees C (36.0 - 37.3) 09/19/2016 12:56am Pulse Rate (adult) 74 bpm (60 - 100) 09/19/2016 12:56am Respiratory Rate 24 breaths/min (10 - 20) 09/19/2016 12:56am O2 Sat by Pulse Oximetry 93 % (90 - 100) 09/19/2016 12:56am Oxygen Flow Rate 0.50 L/min 09/19/2016 12:56am Blood Pressure 131/60 mm Hg 09/19/2016 12:56am Height (Feet) 5 feet 09/18/2016 10:20pm Height (Inches) 3.00 inches 09/18/2016 10:20pm Weight (Kilograms) 65.600 kg 09/18/2016 10:20pm Body Mass Index (BMI) 25.0 09/18/2016 10:20pm Results Laboratory Results Test Name Result Units Flags Reference Collection Date/Time Result Date/ Time Comments Total Bilirubin 0.60 MG/DL 0.20-1.30 09/14/2016 2:20pm 09/14/2016 2: 38pm Alkaline Phosphatase 114 U/L 38-126 09/14/2016 2:20pm 09/14/2016 2: 38pm Total Protein 6.9 G/DL 6.3-8.2 09/14/2016 2:20pm 09/14/2016 2:38pm Albumin 3.6 G/DL 3.5-5.0 09/14/2016 2:20pm 09/14/2016 2:38pm Globulin 3.3 G/DL 2.4-3.6 09/14/2016 2:20pm 09/14/2016 2:38pm Albumin/Globulin Ratio 1.1 RATIO 1.1-2.2 09/14/2016 [...] 2:20pm 09/14/2016 2:39pm Procalcitonin 0.22 NG/ML 09/14/2016 2:09/14/2016 2:57pm PCT </= 0.5 ng/mL - sepsis not likely; PCT >0.5 and </=2 ng/mL - sepsis possible; PCT >2 ng/mL - sepsis likely; PCT >/=10 ng/mL - systemic inflammatory response - sepsis or septic shock highly indicated. Influenza Type A Antigen NEGATIVE NEGATIVE 09/18/2016 7:35pm 2016 9:12pm Negative for Flu A protein antigen. Assay sensitivity is 90%. Influenza Type B Antigen NEGATIVE NEGATIVE 09/18/2016 7:35pm 2016 9:12pm Negative for Flu B protein antigen. Assay sensitivity is 90%. White Blood Count 13.4 T/MM3 H 4.5-11.0 09/18/2016 10:57pm 09/18/2016 11 :02pm Red Blood Count 3.59 M/MM3 L 4.00-5.20 09/18/2016 10:57pm 09/18/2016 11: 02pm Hemoglobin 11.5 GM/DL L 12-16 09/18/2016 10:57pm 09/18/2016 11:02pm Hematocrit 35.3 % L 36-46 09/18/2016 10:57pm 09/18/2016 11:02pm Mean Corpuscular Volume 98.3 UM3 80-100 09/18/2016 10:57pm 09/18/2016 11:02pm Mean Corpuscular Hemoglobin 32.0 UUG 26-34 09/18/2016 10:57pm 2016 11:02pm Mean Corpuscular Hemoglobin Concent 32.6 GM/DL 31-37 09/18/2016 10:57pm 09/18/2016 11:02pm RDW Standard Deviation 43.5 FL 36.9-50.2 09/18/2016 10:57pm 09/18/2016 11:02pm Platelet Count 340 T/MM3 130-400 09/18/2016 10:57pm 09/18/2016 11:02pm Mean Platelet Volume 9.1 UM3 L 9.4-12.4 09/18/2016 10:57pm 09/18/2016 11 :02pm Neutrophils (%) (Auto) 76.4 % H 33-66 09/18/2016 10:57pm 09/18/2016 11: 02pm Lymphocytes (%) (Auto) 13.8 % L 23-45 09/18/2016 10:57pm 09/18/2016 11: 02pm Monocytes (%) (Auto) 7.4 % 0-9.0 09/18/2016 10:57pm 09/18/2016 11:03pm Eosinophils (%) (Auto) 1.6 % 0-4 09/18/2016 10:57pm 09/18/2016 11:03pm Basophils (%) (Auto) 0.1 % 0-2 09/18/2016 10:57pm 09/18/2016 11:03pm Immature Granulocyte % (Auto) 0.7 % H 0.0-0.5 09/18/2016 10:57pm 2016 11:03pm Absolute Neutrophils (auto) 10.3 T/MM3 H 1.8-7.7 09/18/2016 10:57pm 11:03pm Absolute Lymphocytes (auto) 1.9 T/MM3 1-4.8 09/18/2016 10:57pm 2016 11:03pm Absolute Monocytes (auto) 1.0 T/MM3 H 0-0.8 09/18/2016 10:57pm 2016 11:03pm Absolute Eosinophils (auto) 0.2 T/MM3 0-0.5 09/18/2016 10:57pm 2016 11:03pm Absolute Basophils (auto) 0.0 T/MM3 0-0.2 09/18/2016 10:57pm 2016 11:03pm Absolute Immature Granulocyte (auto 0.09 T/MM3 H 0.00-0.03 09/18/2016 10: 57pm 09/18/2016 11:03pm Icterus Index < 2 0-7 09/18/2016 10:57pm 09/18/2016 11:12pm Chemistry Specimen Hemolysis < 15 0-25 09/18/2016 10:57pm 09/18/2016 11:12pm 0-25: Specimen Exhibited No Hemolysis. Turbidity < 20 0-20 09/18/2016 10:57pm 09/18/2016 11:12pm Sodium Level 135 MEQ/L 134-144 09/18/2016 10:57pm 09/18/2016 11:12pm Potassium Level 4.5 MEQ/L 3.6-5 09/18/2016 10:57pm 09/18/2016 11:12pm Chloride Level 94 MEQ/L L 98-107 09/18/2016 10:57pm 09/18/2016 11:12pm Carbon Dioxide Level 34 MEQ/L H 22-30 09/18/2016 10:57pm 09/18/2016 11: 12pm Anion Gap 7 MEQ/L 5-15 09/18/2016 10:57pm 09/18/2016 11:12pm Blood Urea Nitrogen 14.0 MG/DL 7-17 09/18/2016 10:57pm 09/18/2016 11: 12pm Creatinine 0.5 MG/DL L 0.7-1.2 09/18/2016 10:57pm 09/18/2016 11:12pm BUN/Creatinine Ratio 28 RATIO H 6-26 09/18/2016 10:57pm 09/18/2016 11: 12pm Glomerular Filtration Rate Calc 116 09/18/2016 10:57pm 09/18/2016 11:12pm Glucose Level 146 MG/DL H 65-110 09/18/2016 10:57pm 09/18/2016 11:12pm Calculated Osmolality 264 MOSM/KG 261-280 09/18/2016 10:57pm 2016 11:12pm Calcium Level 9.6 MG/DL 8.4-10.2 09/18/2016 10:57pm 09/18/2016 11:12pm Microbiology Results Procedure Source Organism/Result Collection Date/Time Result Date/Time Result Status Blood Culture Peripheral/Iv Start NO GROWTH AFTER 4 DAYS 09/14/2016 2:20pm 09/18/2016 2:24pm Preliminary Procedures Procedure Status Date Provider(s) Routine venipuncture Completed 09/14/16 Chest x-ray 2vw frontal&latl Completed 09/14/16 Comprehen metabolic panel Completed 09/14/16 Assay of lactic acid Completed 09/14/16 Procalcitonin (pct) Completed 09/14/16 Assay of troponin quant Completed 09/14/16 Complete cbc w/auto diff wbc Completed 09/14/16 Blood culture for bacteria Completed 09/14/16 Blood culture for bacteria Completed 09/14/16 Electrocardiogram tracing Completed 09/14/16 Ther/proph/diag iv inf init Completed 09/14/16 Emergency dept visit Completed 09/14/16 [id number] ITEM OR SERVICE Completed 09/14/16 [id number]"INJECTION, CEFTRIAXONE SODIUM, PER 250 MG" Completed 09/14/16198318"INFUSION, NORMAL SALINE SOLUTION , 250 CC" Completed 09/14/16"INFUSION, NORMAL SALINE SOLUTION , 250 CC" Completed 09/14/16 Encounters Encounter Location Arrival/Admit Date Discharge/Depart Date Attending Provider Departed Emergency Room [facility] 09/18/16 10:20pm 09/19/16 12: 56am CLOVIS MCLEOD MD Registered Clinic [facility] 09/18/16 8:13pm JORGE HOLLAND MD Departed Emergency Room [facility] 09/14/16 1:30pm 09/14/16 4: 35pm CLOVIS MCLEOD MD Recent Diagnosis
[2016-09-22] MEDS ORDERED: CEFTRIAXONE I.V. (ER USE ONLY) 1 G in NORMAL SALINE 100 ML IV ONE (17:00)
--- NOTE | 2016-09-22 17:02 | ERPDOC ---
Departure Disposition Decision Date: Sep 22, 2016 Disposition Decision Time: 18:28 Disposition: 02 [place] [facility] Impression Impression: Primary Impression: COPD exacerbation Severity: Moderate Condition: Stable Seen By: Physician only Referrals: SEBASTIAN PARSONS MD (Family) Problems/Meds/Labs Reviewed?: Yes Medications reviewed and manag: Yes Follow up care ordered?: Yes Mental Status: Alert, Oriented HPI - Dyspnea General Stated Complaint: COUGH/POSS PNEUMONIA Time Seen by Provider: 16:58 HPI - Dyspnea Allergies: Coded Allergies: Penicillins (Verified Allergy, Unknown, 09/22/16) Uncoded Allergies: ANTIHISTAMINES (Allergy, Unknown, 09/14/16) Past History Past Medical History Metabolic: diabetes, hypercholesterolemia, hypertension ENMT: other Cardiac: CAD, PSVT Hx Echocardiogram: No Respiratory: COPD, pneumonia Female: UTI Surgical History General: hernia Cardiac: cardiac bypass Reproductive/: other Joint: knee Family History Family PMH: FOUND: CAD, CVA, cancer, diabetes, hypertension Vaccines Hx Influenza Vaccination: Yes (Feb 2016) Hx Pneumococcal Vaccination: No Social History Substance Use Type: does not use Alcohol Intake: none Physical Exam General Vitals and Pain First Documented Vital Signs Date Time Temp Pulse Resp B/P Pulse Ox O2 Delivery O2 Flow Rate FiO2 09/22/16 16:54 98.1 76 28 176/80 93 Room Air Weight: Kilograms: Height (feet): 5 Height (inches): 3.00 Triage Pain Scale: Progress Results/Orders Orders Procedure Category Date Status Time Cmp - Comprehensive LAB 09/22/16 Complete Metabolic 16:59 Probnp LAB 09/22/16 Complete 16:59 Cbc W/Auto LAB 09/22/16 Complete Diff-Reflex Manual 16:59 Troponin I W LAB 09/22/16 Complete Hemolysis Index 16:59 EKG EKG 09/22/16 Taken 16:59 Chest, Pa & Lateral RAD 09/22/16 Taken 16:59 Iv Lock (Ed Only) EDM 09/22/16 Transmitted 16:59 Oxygen Administration EDM 09/22/16 Transmitted 16:59 Ceftriaxone I.V. (Er PHA 09/22/16 Complete Use Only) (Rocephin 17:00 Albuterol/Ipratropium PHA 09/22/16 Complete (Duoneb) 17:30 Ua, Dip Wreflex LAB 09/22/16 Complete [employer] Analyst 17:41 Methylprednisolone PHA 09/22/16 In Process Sod Succ (Solu-Medrol 18:30 Lab Results Laboratory Tests Test 09/22/16 17:08 09/22/16 17:46 White Blood Count 12.7T/MM3 Red Blood Count 3.97M/MM3 Hemoglobin 12.4GM/DL Hematocrit 39.0% Mean Corpuscular Volume 98.2UM3 Mean Corpuscular Hemoglobin 31.2UUG Mean Corpuscular Hemoglobin Concent 31.8GM/DL RDW Standard Deviation 44.0FL Platelet Count 410T/MM3 Mean Platelet Volume 9.3UM3 Immature Granulocyte % (Auto) 0.7% Neutrophils (%) (Auto) 74.5% Lymphocytes (%) (Auto) 17.1% Monocytes (%) (Auto) 6.0% Eosinophils (%) (Auto) 1.4% Basophils (%) (Auto) 0.3% Absolute Immature Granulocyte (auto 0.09T/MM3 Absolute Neutrophils (auto) 9.5T/MM3 Absolute Lymphocytes (auto) 2.2T/MM3 Absolute Monocytes (auto) 0.8T/MM3 Absolute Eosinophils (auto) 0.2T/MM3 Absolute Basophils (auto) 0.0T/MM3 Turbidity < 20 Sodium Level 136MEQ/L Potassium Level 4.4MEQ/L Chloride Level 94MEQ/L Carbon Dioxide Level 29MEQ/L Anion Gap 13MEQ/L Blood Urea Nitrogen 12.0MG/DL Creatinine 0.5MG/DL Glomerular Filtration Rate Calc 116 BUN/Creatinine Ratio 24RATIO Glucose Level 175MG/DL Calculated Osmolality 266MOSM/KG Calcium Level 9.4MG/DL Total Bilirubin 0.40MG/DL Icterus Index < 2 Aspartate Amino Transf (AST/SGOT) 68U/L Alanine Aminotransferase (ALT/SGPT) 94U/L Alkaline Phosphatase 84U/L Troponin I < 0.012ng/ml YJ-Tlb-W-Type Natriuretic Peptide 178PG/ML Total Protein 7.1G/DL Albumin 3.5G/DL Globulin 3.6G/DL Albumin/Globulin Ratio 1.0RATIO Chemistry Specimen Hemolysis 29 Urine Collection Type Voided-not cc-midstr Urine Color Yellow Urine Turbidity Clear Urine pH 6.0 Urine Specific [place] 1.015 Urine Protein Negative Urine Glucose (UA) Negative Urine Ketones Negative Urine Blood Negative Urine Nitrite Negative Urine Bilirubin Negative Urine Urobilinogen 0.2EU/DL Urine Leukocyte Esterase Negative Urinalysis Comment Microscopic not ind. Medications Current ED Medications Ceftriaxone Sodium/Sodium Chloride (Rocephin/NS) 100 ml @ 100 mls/hr O ONCE IV Last administered on 09/22/16 17:32; Start 09/22/16 at 17:00; Stop at 17:59; Status DC Albuterol/ Ipratropium (Duoneb) 3 ml O ONCE AEROSOL Last administered on 18:12; Start 09/22/16 at 17:30; Stop 09/22/16 at 17:31; Status DC Methylprednisolone Sodium Succinate (Solu-Medrol) 125 mg O ONCE IV ; Start at 18:30; Stop 09/22/16 at 18:31 CLOVIS MCLEOD MD Sep 22, 2016 17:02 CLOVIS MCLEOD MD Sep 22, 2016 17:02
--- NOTE | 2016-09-22 17:04 | NUR ---
DR MCLEOD IN
--- OUTSIDE RECORDS SUMMARY | 2016-09-22 17:12 | XMS REPORT | Continuity of Care Document ---
Author Author [facility] Organization [facility] Address Unknown Phone Unavailable Support Name Relationship Address Phone MARIANA SMART MD Caregiver [address] [place] [address] SEBASTIAN PARSONS MD Caregiver [address] [place] [phone] JOSE FALLON DPOA Next Of Kin [address] [place], [place] [id number] Insurance Providers Payer Name Policy Number Subscriber Name Relationship Medicareadvantra Ppo [id number] Kurt Samuel 16 Self Advance Directives Directive [...] F (96.8 - 99.1) Temperature (Calculated Celsius) 36.42596 degrees C (36.0 - 37.3) Temperature Source [...] 26, 2014 12:30pm 489.9 NG/ML H 0-61.5 UX-Qwd-H-Type Natriuretic Peptide March 26, 2014 12:30pm 556 [...] Has specimen been collected/obtained? Y Urine Specific [place] March 26, 2014 12:15pm 1.025 - Has [...] Coli Name: KURT SAMUEL Katina Unit #: [id number] : 1930 Sex: F Loc / Svc: ED DOS: 03/26/14 Signed Report #: [id number] DIAGNOSTIC IMAGING REPORT TYPE OF EXAM: CHEST, [...]
[2016-09-22 17:21] LABS: BASOPHILS % (AUTO) 0.3 % (0-2); EOSINOPHILS # (AUTO) 0.2 T/MM3 (0-0.5); EOSINOPHILS % (AUTO) 1.4 % (0-4); HGB - HEMOGLOBIN 12.4 GM/DL (12-16); IMMATURE GRANULOCYTE # (AUTO) 0.09 T/MM3 (0.00-0.03); IMMATURE GRANULOCYTE % (AUTO) 0.7 % (0.0-0.5); LYMPHOCYTES # (AUTO) 2.2 T/MM3 (1-4.8); LYMPHOCYTES % (AUTO) 17.1 % (23-45); MEAN CORPUSCULAR HGB 31.2 UUG (26-34); MEAN CORPUSCULAR HGB CONC(MCHC 31.8 GM/DL (31-37); MEAN CORPUSCULAR VOLUME 98.2 UM3 (80-100); MEAN PLATELET VOLUME 9.3 UM3 (9.4-12.4); MONOCYTES # (AUTO) 0.8 T/MM3 (0-0.8); NEUTROPHILS #(AUTO)-ABSOLUTE 9.5 T/MM3 (1.8-7.7); NEUTROPHILS % (AUTO) 74.5 % (33-66); RED BLOOD COUNT 3.97 M/MM3 (4.00-5.20); WBC - WHITE BLOOD COUNT 12.7 T/MM3 (4.5-11.0)
[2016-09-22 17:24] LABS: ALBUMIN 3.5 G/DL (3.5-5.0); ALKALINE PHOSPHATASE 84 U/L (38-126); ALT (SGPT) 94 U/L (9-52); ANION GAP 13 MEQ/L (5-15); AST (SGOT) 68 U/L (14-36); BUN/CREATININE RATIO 24 RATIO (6-26); CALCIUM 9.4 MG/DL (8.4-10.2); CHLORIDE 94 MEQ/L (98-107); CO2 - CARBON DIOXIDE 29 MEQ/L (22-30); CREATININE 0.5 MG/DL (0.7-1.2); GLOMERULAR FILTRATION RATE 116; GLUCOSE 175 MG/DL (65-110); POTASSIUM 4.4 MEQ/L (3.6-5); SODIUM 136 MEQ/L (134-144); TOTAL PROTEIN 7.1 G/DL (6.3-8.2)
[2016-09-22] MEDS ORDERED: ALBUTEROL/IPRATROPIUM INHAL. 2.5mg-0.5mg/3ml Neb. AEROSOL ONE (17:30)
--- NOTE | 2016-09-22 17:30 | NUR ---
OUTPUT VOIDED CLEAR TERESITA URINE.
[2016-09-22 17:36] LABS: PROBNP 178 PG/ML (0-175)
[2016-09-22 17:51] LABS: BLOOD, URINE NEGATIVE (NEGATIVE); COLOR,URINE YELLOW (YELLOW); LEUKOCYTE ESTERASE ,URINE NEGATIVE (NEGATIVE); NITRITE,URINE NEGATIVE (NEGATIVE); UROBILINOGEN,URINE 0.2 EU/DL (NORMAL)
--- NOTE | 2016-09-22 17:54 | NUR ---
TO [facility] PER CART
--- NOTE | 2016-09-22 18:04 | NUR ---
RETURNED FROM [facility]
--- NOTE | 2016-09-22 18:06 | NUR ---
REPORT TO [facility] DONG
--- NOTE | 2016-09-22 18:12 | NUR ---
ANTIBIOTIC INFUSION FINISHED
--- NOTE | 2016-09-22 18:12 | NUR ---
Joe henderson in ED - 09/22/16 at 2004 by [facility] IVF FLUIDS COMPLETE.
--- NOTE | 2016-09-22 18:20 | NUR ---
INPUT PT GIVEN CRACKERS, PT REQUESTED HUNGRY AND DIABETIC.
[2016-09-22] MEDS ORDERED: PRN ORDERS MC ×2 (18:30→19:15)
[2016-09-22] MEDS ORDERED: ALBUTEROL/IPRATROPIUM INHAL. 2.5mg-0.5mg/3ml Neb. AEROSOL PRN (18:30)
--- OUTSIDE RECORDS SUMMARY | 2016-09-22 18:38 | XMS REPORT | Continuity of Care Document ---
Author Author Josh [facility] Organization [facility] Address Unknown Phone Unavailable Support Name Relationship Address Phone MARIANA SMART MD Caregiver [address] [address] SEBASTIAN PARSONS MD Caregiver [address] [place] [phone] JOSE FALLON DPOA Next Of Kin [address] [place], [place] [id number] Insurance Providers Payer Name Policy Number Subscriber Name Relationship Medicareadvantra Ppo [id number] Kurt Samuel 16 Self Advance Directives Directive [...] F (96.8 - 99.1) Temperature (Calculated Celsius) 36.54983 degrees C (36.0 - 37.3) Temperature Source [...] 26, 2014 12:30pm 489.9 NG/ML H 0-61.5 ZQ-Ccq-V-Type Natriuretic Peptide March 26, 2014 12:30pm 556 [...] Has specimen been collected/obtained? Y Urine Specific [place] March 26, 2014 12:15pm 1.025 - Has [...] Coli Name: KURT SAMUEL Katina Unit #: [id number] : 1930 Sex: F Loc / Svc: ED DOS: 03/26/14 Signed Report #: [id number] DIAGNOSTIC IMAGING REPORT TYPE OF EXAM: CHEST, [...] procedures. Encounters Encounter Location Date/Time Discharged Inpatient [facility] 03/26/14 4:19pm Recent Diagnosis Dizziness and Giddiness UTI (urinary tract infection) Dehydration Rhabdomyolysis
[2016-09-22] MEDS: NORMAL SALINE 1,000 ML IV SCH (18:43)
--- NOTE | 2016-09-22 19:00 | NUR ---
ROOM ASSIGNED PT ROOM ASSIGNED RM [id number] MEDICAL OBSERVATION.
--- NOTE | 2016-09-22 19:12 | NUR ---
REPORT REPORT GIVEN TO [facility].
[2016-09-22] MEDS ORDERED: NITROGLYCERIN 0.4 MG SUBLINGUAL TABLET SL PRN (19:15)
[2016-09-22] MEDS ORDERED: DEXTROSE 50% SYRINGE 50ml (Eq. 1 AMP) IV PRN (19:15)
[2016-09-22] MEDS ORDERED: LORAZEPAM 2 MG/ML INJECTION IV PRN (19:15)
[2016-09-22] MEDS ORDERED: MAG-AL + SIM LIQUID 30 ML UDC PO PRN (19:15)
[2016-09-22] MEDS ORDERED: MENTHOL COUGH DROPS (RICOLA) MM PRN (19:15)
[2016-09-22] MEDS ORDERED: MILK OF MAGNESIA 30 ML SUSP PO PRN (19:15)
[2016-09-22] MEDS ORDERED: ONDANSETRON 4mg/2ml INJECTION IV PRN (19:15)
[2016-09-22] MEDS ORDERED: ACETAMINOPHEN 325 MG TABLET PO PRN (19:15)
[2016-09-22] MEDS ORDERED: GLUCOSE ORAL GEL 40% 37.5 G TUBE PO PRN (19:15)
[2016-09-22] MEDS ORDERED: BISACODYL 10 MG SUPPOSITORY RECTALLY PRN (19:15)
--- NOTE | 2016-09-22 19:25 | NUR ---
DEPART PT LEFT ER ALERT, VS CHARTED IN NO ACUTE DISTRESS VIA CART TO MEDICAL UNIT AND PT CARE XFERED TO OLVIN DONG W/O CHANGE.
[2016-09-22 19:34] VITALS: Ht 160 cm; Wt 65.8 kg
[2016-09-22 19:35] VITALS: BP 119/63; PULSE 75; RESP 22; TEMP 98; O2SAT 92
--- NOTE | 2016-09-22 20:15 | NUR ---
Admit Pt brought to room 147 via cart from ER. A/O x3, pt is [id number]. Oriented to room, call light, and bed. VSS, NS infusing at 75ml/hr. O2 sat stable on RA. Pt has a productive loose cough. Alarms in place, will monitor.
--- NOTE | 2016-09-22 20:50 | HPF ---
CHIEF COMPLAINT Increasing weakness, difficulty walking. HISTORY OF PRESENT ILLNESS Mrs. Samuel is an 86-year-old female who represents to [facility] Emergency Room secondary to increasing weakness but also respiratory problems. She was seen in [facility] on 09/14/2016. At that time she had been having increasing weakness for one week. She has fallen in her room on several occasions. It is harder for to get up and be active. Around that time she was having episode of emesis. She was started on oxygen at her facility as her saturations were running 88% on room air. In light of her worsening symptoms of weakness she was sent to the emergency room to exclude sepsis. At that time her white count was 13.3. Chest x-ray showed an area of atelectasis or pneumonia. Septic markers were negative. She was treated with Rocephin and completed azithromycin. She represents on the - at that time she had completed the Z-Jayjay but she was still having episodes of hypoxia, cough and congestion. Facility found that her oxygen saturation was 88% on 2 liters and she was sent to emergency room for evaluation. While in emergency room she was only needing 0.5 liter to maintain saturations. Chest x-ray showed no change. Lab was essentially stable. She was discharged to home. Today she represents. She has been having cough productive of yellow sputum. She does feel her cough is starting to loosen up and she is mobilizing more phlegm than in the past several days. The breathing treatment given in emergency room was very beneficial. Her biggest complaint, though, is she simply is so weak and unstable. Her left leg has been giving out on her and it makes ambulating in her apartment problematic. She denies fevers or chills. She does note shortness of breath off and on but nothing horrible or dramatic. She denies pain with breathing. She is not having chest pressure, pain or discomfort. Appetite has been stable. She has not been having nausea or vomiting. Bowels have been moving without constipation or diarrhea. She is not having urinary pain or discomfort. In emergency room she was reevaluated. White count is 12.7 but platelets are elevated at 410. UA shows no evidence of infection. Chest x-ray looks largely stable. In light of her persistent weakness and COPD with exacerbation coupled with probable pneumonia, Dr. Moy was notified. Patient was placed in outpatient observation for further evaluation and treatment. PAST MEDICAL HISTORY Coronary artery disease with history of CABG. Hypertension. Hyperlipidemia. 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 COPD. Osteoarthritis. Vestibular dysfunction. Sliding hiatal hernia. Depression/anxiety. History of SVT. Hard of hearing. Constipation. History of right breast biopsy 2007. History of right total knee replacement 1994. ALLERGIES Penicillin. Antihistamines. MEDICATIONS Aspirin 81 mg daily. QVAR 80 2 puffs b.i.d. Benazepril 10 mg daily. Citalopram 20 mg daily. Diltiazem 120 mg daily. Neurontin 100 mg t.i.d. Tussin DM 10 mL q.4h. p.r.n. Levemir 18 units in the evening. NovoLog 10 units at noon. NovoLog 6-10 units p.r.n. Combivent p.r.n. Latanoprost one drop right eye in evening. Maalox p.r.n. Multivitamin daily. Naprosyn 220 mg daily p.r.n. Glucerna p.r.n. Seroquel 12.5 mg q.h.s. Simvastatin 40 mg q.h.s. SOCIAL HISTORY Patient is a who resides in independent living at [facility]. She has a history of smoking. 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 Occasionally she will use alcohol. She sees Dr. Fonseca for primary care. FAMILY HISTORY Father had CAD. Mother had stroke and rectal cancer. Brother had diabetes. REVIEW OF SYSTEMS As above. GENERAL: Notes increased globalized weakness. Appetite has been stable. HEENT: Vision and hearing are stable. RESPIRATORY: As above. Notes cough productive of yellow sputum. Denies pain with breathing. Notes shortness of breath which is variable. CARDIOVASCULAR: Denies chest pressure or palpitations. GI: Bowels are stable. : Denies urinary pain, burning or discomfort. MUSCULOSKELETAL: Notes difficulty ambulating on her left leg as it wants to give out. Her overall strength and abilities have been declining over the past several weeks. Remainder of 10-point review of systems is negative. PHYSICAL EXAMINATION VITAL SIGNS: Height 63 inches, weight 64.6 kg. BMI 25.2. Temperature 98.8, pulse 76/regular, respiratory rate 28 with mild labor. Blood pressure 176/80. 89%-93% room air saturation. GENERAL: Well-developed, well-nourished, elderly female who is awake and alert. She interacts appropriately but is quite hard of hearing. HEENT: NC/AT. PERRLA. EOMI. Mucous membranes moist. No oral thrush noted. NECK: Supple, midline without nuchal rigidity. LUNGS: Decreased breath sounds bilaterally. I am hearing diminished breath sounds. Lung sounds do sound tight. She does have hoarse cough during the interview and examination. CARDIOVASCULAR: Distant but regular. ABDOMEN: Soft, nontender, nondistended. Bowel sounds are hypoactive. EXTREMITIES: No clubbing or cyanosis. +1 bilateral lower extremity edema is noted. NEUROLOGIC: Patient is awake and alert. Cranial nerves II-XII appear grossly intact. I am not appreciating focal deficits. PSYCHIATRIC:: Patient is awake and alert. She interacts appropriately. She is not agitated or restless. MUSCULOSKELETAL: Decreased range of motion of left lower extremity is noted. I am not appreciating swelling or erythema around her left knee. SKIN: Warm and dry. LABORATORY White blood count is 12.7 with 74.5% neutrophils. Hemoglobin is 12.4 with hematocrit 39.0, MCV 98.2 and platelets 410,000. Serum sodium is 136, potassium 4.4, chloride 94, CO2 26, BUN 12 with creatinine 0.5, GFR 116 and blood glucose 175. AST is 68 with ALT 94. Troponin I is less than 0.012. ProBNP is 178. UA is completely unremarkable. ASSESSMENT 1. COPD with acute exacerbation. 2. Suspect underlying community-acquired pneumonia. 3. Increasing weakness secondary to above-noted concerns. 4. Leukocytosis. 5. Thrombocytosis. 6. Coronary artery disease without anginal symptoms. 7. Hypertension. 8. Hyperlipidemia. 9. Type 2 diabetes mellitus - insulin-requiring. 10. Osteoarthritis. 11. Vestibular dysfunction. 12. Depression/anxiety. 13. Gait instability. 14. [id number]. 15. Elevated liver enzymes. PLAN 1. Will place patient in outpatient observation status at [facility] under the care of Dr. Moy. 2. Initiate antimicrobial therapy with Rocephin 1 g IV daily. 3. Start Solu-Medrol. She was given 125 mg IV in emergency room - will continue 62.5 mg IV q.6h. to help decrease pulmonary inflammation and it may also help improve some of her joint aches and pains. 4. Initiate nebulized treatments of DuoNeb q.i.d. and q. 2 hours p.r.n. shortness of air. Will have budesonide 0.5 mg nebulized b.i.d. 5. Start Acapella q.i.d. to help loosen secretions. Will initiate Mucinex DM as well. 6. Monitor saturations, providing supplemental oxygen as needed. 7. Continue with home medications, other than holding simvastatin secondary to slight elevation of liver enzymes. 8. Monitor blood sugars, continuing her home Levemir. Will have insulin sliding scale available. Anticipate elevation of blood sugars secondary to steroids. 9. Consult with PT/OT to help increase strength and functional abilities. 10. Check respiratory PCR panel for completeness. 11. Initiate SCDs for DVT prophylaxis. 12. Recheck CBC and BMP in a.m. 13. Initiate normal saline at 75 mL/hr to help with hydration. 14. Patient will be DNR as per request. 15. Patient's care will be returned to Dr. Fonseca at time of discharge from [facility]. ZEUS
[2016-09-22 21:00] VITALS: O2SAT 91
[2016-09-22] MEDS ORDERED: ALBUTEROL/IPRATROPIUM INHAL. 2.5mg-0.5mg/3ml Neb. AEROSOL SCH (21:00)
[2016-09-22] MEDS: GABAPENTIN 100 MG CAPSULE PO SCH (21:48)
[2016-09-22] MEDS: QUETIAPINE 25 MG TABLET PO SCH (21:48)
[2016-09-22] MEDS: GUAIFENESIN DM 600mg/30mg TABLET PO SCH (21:48)
[2016-09-22] MEDS: INSULIN DETEMIR 100 UNIT/ML SQ SCH (22:19)
[2016-09-23] VITALS (9 sets, daily range): BP systolic 126–140; BP diastolic 65–73; PULSE 80–89; RESP 18–20; TEMP 96.9–98.2; O2SAT 91–97
[2016-09-23 06:09] LABS: HCT - HEMATOCRIT 35.1 % (36-46); HGB - HEMOGLOBIN 11.3 GM/DL (12-16); MEAN CORPUSCULAR HGB 31.2 UUG (26-34); MEAN CORPUSCULAR HGB CONC(MCHC 32.2 GM/DL (31-37); MEAN PLATELET VOLUME 9.4 UM3 (9.4-12.4); RED BLOOD COUNT 3.62 M/MM3 (4.00-5.20); WBC - WHITE BLOOD COUNT 8.8 T/MM3 (4.5-11.0)
--- NOTE | 2016-09-23 06:19 | NUR ---
status Pt slept well, 2 x person assist to BSC.
[2016-09-23 06:20] LABS: ALBUMIN/GLOBULIN RATIO 0.9 RATIO (1.1-2.2); ALKALINE PHOSPHATASE 75 U/L (38-126); ALT (SGPT) 82 U/L (9-52); ANION GAP 11 MEQ/L (5-15); AST (SGOT) 47 U/L (14-36); BUN/CREATININE RATIO 30 RATIO (6-26); CALCIUM 9.3 MG/DL (8.4-10.2); CHLORIDE 98 MEQ/L (98-107); CO2 - CARBON DIOXIDE 27 MEQ/L (22-30); CREATININE 0.5 MG/DL (0.7-1.2); GLOMERULAR FILTRATION RATE 116; GLUCOSE 235 MG/DL (65-110); POTASSIUM 4.8 MEQ/L (3.6-5); SODIUM 136 MEQ/L (134-144); TOTAL PROTEIN 6.2 G/DL (6.3-8.2)
[2016-09-23 06:45] LABS: LYMPHOCYTES # (MANUAL) 0.5 T/MM3 (1-4.8); MONOCYTES # (MANUAL) 0.1 T/MM3 (0-0.8); NEUTROPHILS #(MANUAL)-ABSOLUTE 8.2 T/MM3 (1.8-7.7); TOTAL CELLS COUNTED 100 %
--- NOTE | 2016-09-23 08:16 | DI ---
INDICATION: ITS.REASON: cough shortness of air greater than week PROCEDURE: CHEST 2-VIEWS UPRIGHT (PA \T\ LAT) Encounter: Initial COMPARISON: September 18, 2016 FINDINGS: Sk[place]old noted in the right chest, similar to the prior study. Mild emphysema or senescent changes. No consolidative pneumonia, pleural effusion or pneumothorax. Cardiac silhouette remains enlarged CABG. Mediastinal contours are stable. Impression: No focal pneumonia or congestive failure. .
[2016-09-23] MEDS: BUDESONIDE INH.SOLN. 0.5mg/2ml NEB AEROSOL SCH ×2 (08:27→19:24)
[2016-09-23] MEDS: BENAZEPRIL 10 MG TABLET PO SCH (09:09)
[2016-09-23] MEDS: GUAIFENESIN DM 600mg/30mg TABLET PO SCH ×2 (09:09→20:05)
[2016-09-23] MEDS: DILTIAZEM CD 120mg CAP (QD) PO SCH (09:09)
[2016-09-23] MEDS: GABAPENTIN 100 MG CAPSULE PO SCH ×3 (09:09→20:05)
[2016-09-23] MEDS: NORMAL SALINE 1,000 ML IV SCH ×2 (09:10→12:15)
[2016-09-23] MEDS: ASPIRIN 81 MG CHEWABLE TABLET PO SCH (09:10)
[2016-09-23] MEDS: CEFTRIAXONE 1 G in NORMAL SALINE 100 ML IV SCH (09:28)
--- NOTE | 2016-09-23 10:37 | NUR ---
IRU referral received. PT/OT evaluations pending. Will complete admission assessment when reports are available.
[2016-09-23] MEDS: INSULIN ASPART 100 UNIT/ML SQ SCH (11:48)
[2016-09-23] MEDS: INSULIN REGULAR 100 UNIT/ML SQ PRN ×2 (11:49→23:42)
[2016-09-23] MEDS: ALBUTEROL/IPRATROPIUM INHAL. 2.5mg-0.5mg/3ml Neb. AEROSOL SCH ×3 (12:24→19:23)
--- NOTE | 2016-09-23 12:26 | PNPDOC ---
Subjective Date DATE: 09/23/16 TIME: 12:11 Subjective F/U: COPD exacerbation, Suspect pneumonia, Gait instability Breathing better - coughing up more sputum, which is helpful. Less congested. Less SOA. No pain with breathing or chest pain. Appetite fair. No nausea or ab pain. Worked with therapy. Still very difficult to ambulated-knees feel weak. Not having pain to knees. Objective Vital Signs Vital signs Vital Signs Date Time Temp Pulse Resp B/P Pulse Ox O2 Delivery O2 Flow Rate FiO2 09/23/16 08:31 80 09/23/16 08:15 22 94 09/23/16 07:22 96.9 126/73 Room Air Height (Feet): 5 Height (Inches): 3.00 Weight (Kilograms): 64.200 General General Appearance: Alert, Orientated x 3, Well Nourished, Well Developed, Cooperative, Other ([place]), Looks Stated Age Eyes (Brief) Eyes: FOUND: EOMI, PERRL, NOT FOUND: scleral icterus ENMT (Brief) ENMT: FOUND: hearing intact, mucosa moist Neck (Brief) Neck: FOUND: midline, NOT FOUND: nuchal rigidity, spasm Respiratory (Brief) Respiratory: FOUND: wheezes, NOT FOUND: clear all rapp (Decreased breath sounds. Tight and course. ), rales Cardiovascular (Brief) Cardiac: FOUND: regular rate, regular rhythm Abdomen (Brief) Abdominal: FOUND: BS normo active x4, soft, NOT FOUND: distended, tender Extremities (Brief) Extremity : Side: Bilateral Extremity: leg Extremity Finding: FOUND: edema (Trace ) Musculoskeletal (Brief) Musculoskeletal: NOT FOUND: deformity, spasm Integumentary (Brief) Integumentary: FOUND: dry, warm Neurologic (Brief) Neurological: FOUND: cranial 2-12 intact, motor (Intact ) Psychiatric (Brief) Psychiatric: FOUND: alert, attentive, normal affect, oriented Laboratory Laboratory Laboratory Tests 09/22/16 17:08 09/23/16 05:37 Laboratory Tests 09/22/16 17:08 09/23/16 05:37 Assessment & Plan Problems: (1) COPD exacerbation Status: Acute (2) Pneumonia (3) Weakness Status: Acute (4) Gait instability Status: Chronic (5) Leukocytosis Status: Resolved Assessment & Plan: POA (6) Thrombocytosis Status: Resolved Assessment & Plan: POA (7) CAD (coronary artery disease) Status: Chronic Qualifiers: Coronary Disease-Associated Artery/Lesion type: [place] artery [place] vs. transplanted heart: [place] heart Associated angina: without angina Qualified Codes: I25.10 - Atherosclerotic heart disease of [place] coronary artery without angina pectoris (8) HTN (hypertension) Status: Chronic Qualifiers: Hypertension type: essential hypertension Qualified Codes: I10 - Essential (primary) hypertension (9) Hyperlipidemia Status: Chronic Qualifiers: Hyperlipidemia type: unspecified Qualified Codes: E78.5 - Hyperlipidemia, unspecified (10) Type II diabetes mellitus Status: Chronic Qualifiers: Diabetes mellitus complication status: without complication Diabetes mellitus usp insulin use: with usp use Qualified Codes: E11.9 - Type 2 diabetes mellitus without complications; Z79.4 - retirement (current) use of insulin (11) Osteoarthritis Status: Chronic Qualifiers: Osteoarthritis location: multiple joints Osteoarthritis type: primary Qualified Codes: M15.0 - Primary generalized (osteo)arthritis (12) Elevated liver enzymes Status: Acute Assessment & Plan: POA (13) Hard of hearing Status: Chronic Qualifiers: Hearing loss type: unspecified Laterality: bilateral Qualified Codes: H91.93 - Unspecified hearing loss, bilateral (14) Depression Status: Chronic Qualifiers: Depression Type: unspecified Qualified Codes: F32.9 - Major depressive disorder, single episode, unspecified (15) Anxiety Status: Chronic Plan/Intensity of Service Change admission status to inpatient for continued treatment of pneumonia and COPD exacerbation. Will continue Rocephin for pulmonary coverage. Continue Solu-Medrol at 62.5mg IV q 6 hours. Continue Neb treatment of DuoNeb and budesonide as well as Mucinex and acapella to help improve pulmonary performance. Consult with Dr Gauthier for evaluation of knee limitations. PT/OT initiated to help improve functional status. Decrease IVF to 50 cc/hr. Recheck CBC in am due to pneumonia. Recheck BMP in am due to medication use. Case discussed with CM. Time spent with pt care 35 minutes. DVT Prophylaxis: SCD'S Code Status Do Not Resuscitate Hospital Course Summary Disclaimer The hospital course summary below is not to be considered part of the above Progress Note. Hospital Course Summary 09/[address] patient in outpatient observation status at [facility] under the care of Dr. Moy. Initiate antimicrobial therapy with Rocephin 1 g IV daily. Start Solu-Medrol. She was given 125 mg IV in emergency room - will continue 62.5 mg IV q.6h. to help decrease pulmonary inflammation and it may also help improve some of her joint aches and pains. Initiate nebulized treatments of DuoNeb q.i.d. and q. 2 hours p.r.n. shortness of air. Will have budesonide 0.5 mg nebulized b.i.d. Start Acapella q.i.d. to help loosen secretions. Will initiate Mucinex DM as well. Monitor saturations, providing supplemental oxygen as needed. Continue with home medications, other than holding simvastatin secondary to slight elevation of liver enzymes. Monitor blood sugars, continuing her home Levemir. Will have insulin sliding scale available. Anticipate elevation of blood sugars secondary to steroids. Consult with PT/OT to help increase strength and functional abilities. Check respiratory PCR panel for completeness. Initiate SCDs for DVT prophylaxis. Recheck CBC and BMP in a.m. Initiate normal saline at 75 mL/hr to help with hydration. Patient will be DNR as per request. Patient's care will be returned to Dr. Fonseca at time of discharge from [facility]. 09/23 Breathing better - coughing up more sputum, which is helpful. Less congested. Less SOA. No pain with breathing or chest pain. Appetite fair. No nausea or ab pain. Worked with therapy. Still very difficult to ambulated-knees feel weak. Not having pain to knees. Change admission status to inpatient for continued treatment of pneumonia and COPD exacerbation. Will continue Rocephin for pulmonary coverage. Continue Solu-Medrol at 62.5mg IV q 6 hours. Continue Neb treatment of DuoNeb and budesonide as well as Mucinex and acapella to help improve pulmonary performance. Consult with Dr Gauthier for evaluation of knee limitations. PT/OT initiated to help improve functional status. Decrease IVF to 50 cc/hr. Recheck CBC in am due to pneumonia. Recheck BMP in am due to medication use. PHYLLIS MOY MD Sep 23, 2016 12:15
--- NOTE | 2016-09-23 13:02 | NUR ---
CM CM IN TO VISIT PT. CM EXPLAINED ROLE AND PROVIDED CONTACT INFORMATION. PT LIVES IN HEALTHCARE AT [facility] AND DENIES NEEDS AT [place]. PT AWARE TO CONTACT CM SHOULD NEEDS [place].
--- NOTE | 2016-09-23 13:37 | DI ---
Indication: ITS.REASON: left knee pain with ambulation PROCEDURE: KNEE LEFT 3 VIEWS: Encounter: Initial Comparison: None Findings: There is no acute fracture, dislocation or malalignment identified. Moderate lateral compartment joint space narrowing with meniscal chondrocalcinosis patellofemoral compartment osteophytes. Vascular surgical clips and arterial calcifications. Impression: No acute osseous abnormality. .
--- NOTE | 2016-09-23 14:51 | CONSPD ---
Consultation Info Date DATE: 09/23/16 TIME: 14:37 Attending Physician Luiz Gauthier MD Reason for Consultation: left knee pain, instability Impression/Recommendation Impression/Recommendation: (1) Osteoarthritis Status: Chronic Qualifiers: Osteoarthritis location: multiple joints Osteoarthritis type: primary Qualified Codes: M15.0 - Primary generalized (osteo)arthritis Recommendation: Left knee brace. Her main complaint is instability with ambulation. She doesn't have much pain from her bone on bone OA. Ortho HPI HPI Elements HPI This is an 86 year old female who is admitted to Dr. Moy's service for treatment of pneumonia and a COPD exacerbation. Her respiratory issues have been improving. Dr. Moy asked orthopaedics to see and evaluate her for chief complaint of left knee instability. She has had knee instability and occasional pain for years. Presently, she denies left knee pain. Symptoms are worse with activity and better with rest. Their was no specific injury. She denies leg heaviness or radicular pain. She has not had surgery on the left knee before. She has had a right total knee years ago but could not remember the physician. She has tried an over the counter brace in the past which has helped. She denies having had intra articular steroid injections in the past. She is presently on Solu Medrol in relation to her pulmonary treatment. Review of Systems Constitutional: REPORTS: chills, fatigue, fever (in relation to pneumonia, not presently febrile) Cardiovascular DENIES: chest pain Pulmonary Respiratory: dyspnea (secondary to COPD), pneumonia hx GI Upper Abdomen: DENIES: nausea Musculoskeletal General: joint pain, pain (left knee along joint line.), weakness, DENIES: joint swelling Integumentary Skin: DENIES: sores Psychiatric Psychiatric: irritability Past Medical History Adult Surgical History Patient's Surgical History: Right TKA Current Medications Aspirin (Aspirin) 81 Mg Tab.chew, 81 MG PO DAILY, (Reported) Last Taken: Unknown Dose on 09/22/16 0800 Beclomethasone Dipropionate (Qvar 80) 8.7 Gm Aer.w.adap, 2 PUFF ORAL INH BID, (Reported) Last Taken: Unknown Dose on 09/22/16 0900 Benazepril Hcl (Lotensin) 10 Mg Tablet, 10 MG PO DAILY, (Reported) Last Taken: Unknown Dose on 09/22/16 0800 Citalopram Hydrobromide ( Citalopram HBr) 20 Mg Tablet, 20 MG PO DAILY, (Reported) Last Taken: Unknown Dose on 09/22/16 0800 Diltiazem Hcl (Cartia Xt) 120 Mg Cap.sr.24h, 1 CAP PO DAILY, (Reported) Last Taken: Unknown Dose on 09/22/16 0800 Gabapentin (Gabapentin) 100 Mg Capsule, 100 MG PO TID, (Reported) Last Taken: Unknown Dose on 09/22/16 1200 Guaifenesin/Dextromethorphan ( Diabetic Tussin Dm Liquid) 118 Ml Liquid, 10 ML PO Q4H PRN for COUGH, (Reported) Last Taken: Unknown Dose on Unknown Date & Time Insulin Aspart (Novolog) 100 Unit/Ml Inj, 10 UNIT SQ NOON, (Reported) Last Taken: Unknown Dose on 09/22/16 1200 Insulin Aspart (Novolog) 100 Unit/ Ml Inj, 6-10 UNIT SQ PRN, (Reported) Last Taken: Unknown Dose on Unknown Date & Time Insulin Detemir (Levemir) 100 Unit/Ml Inj, 18 UNIT SQ PM, (Reported) Last Taken: Unknown Dose on 09/21/16 1800 Ipratropium/Albuterol Sulfate ( Combivent Respimat Inhal [place]) 120 Puff/4 Gm Inha, 2 PUFF INH Q4H PRN for SHORTNESS OF AIR, (Reported) Last Taken: Unknown Dose on 09/19/16 0846 Latanoprost (Latanoprost) 2.5 Ml Drops, 1 DROP RIGHT EYE PM, (Reported) Last Taken: Unknown Dose on 09/21/16 1830 Mag Hydrox/Al Hydrox/Simeth ( Maalox Advanced Suspension) 355 Ml Oral.susp, 30 ML PO Q2H PRN for HEARTBURN, ( Reported) Last Taken: Unknown Dose on Unknown Date & Time Multivitamin (Multivitamins ) 1 Each Tablet, 1 TAB PO DAILY, (Reported) Last Taken: Unknown Dose on 09/22/16 0800 Naproxen Sodium (Naproxen Sodium) 220 Mg Tablet, 220 MG PO DAILY PRN for PAIN, (Reported) Last Taken: Unknown Dose on Unknown Date & Time Nut.tx.gluc.intoler,Lac-Fr, Soy (Glucerna) 237 Ml Liquid, 237 ML PO PRN, (Reported) Last Taken: Unknown Dose on Unknown Date & Time Quetiapine Fumarate ( Seroquel) 25 Mg Tablet, 12.5 MG PO HS, (Reported) Last Taken: Unknown Dose on 09/21/16 1800 Simvastatin (Simvastatin) 40 Mg Tablet, 40 MG PO HS, (Reported) Last Taken: Unknown Dose on 09/21/16 1800 Allergies Allergies: Coded Allergies: Penicillins (Verified Allergy, Unknown, 09/22/16) Uncoded Allergies: ANTIHISTAMINES (Allergy, Unknown, 09/14/16) Vaccines feb 2016 unknown No Social History Substance Use Type: does not use Alcohol Intake: none Advance Directives: Yes DPOA for Healthcare Only Physical Exam General General: well nourished, well developed, no acute distress Respiratory FOUND non-labored Cardiovascular FOUND pedal pulses intact Capillary Refill: <2 sec Abdomen Abdominal: FOUND soft Musculoskeletal Musculoskeletal Brief: FOUND: deformity (Valgus, correctable), tenderness, Not FOUND: loss of motion Comments Left knee. ROM 0-120. No effusion. Can perform a quad set. Fiona's is elongated, valgus varus both stable. Palpable crepitus thought ROM. Tender along joint lines. Integumentary FOUND dry, FOUND pink, FOUND warm Neurologic FOUND intact to light touch, FOUND no deficits Psychiatric FOUND normal affect (little irratable) Laboratory Laboratory Tests Test 09/22/16 17:08 09/22/16 17:46 09/22/16 21:54 09/23/16 05:37 White Blood Count 12.7T/MM3 8.8T/MM3 Red Blood Count 3.97M/MM3 3.62M/MM3 Hemoglobin 12.4GM/DL 11.3GM/DL Hematocrit 39.0% 35.1% Mean Corpuscular Volume 98.2UM3 97.0UM3 Mean Corpuscular Hemoglobin 31.2UUG 31.2UUG Mean Corpuscular Hemoglobin Concent 31.8GM/DL 32.2GM/DL RDW Standard Deviation 44.0FL 42.4FL Platelet Count 410T/MM3 349T/MM3 Mean Platelet Volume 9.3UM3 9.4UM3 Immature Granulocyte % (Auto) 0.7% % Neutrophils (%) (Auto) 74.5% % Lymphocytes (%) (Auto) 17.1% % Monocytes (%) (Auto) 6.0% % Eosinophils (%) (Auto) 1.4% % Basophils (%) (Auto) 0.3% % Absolute Immature Granulocyte (auto 0.09T/MM3 T/MM3 Absolute Neutrophils (auto) 9.5T/MM3 T/MM3 Absolute Lymphocytes (auto) 2.2T/MM3 T/MM3 Absolute Monocytes (auto) 0.8T/MM3 T/MM3 Absolute Eosinophils (auto) 0.2T/MM3 T/MM3 Absolute Basophils (auto) 0.0T/MM3 T/MM3 Turbidity < 20 < 20 Sodium Level 136MEQ/L 136MEQ/L Potassium Level 4.4MEQ/L 4.8MEQ/L Chloride Level 94MEQ/L 98MEQ/L Carbon Dioxide Level 29MEQ/L 27MEQ/L Anion Gap 13MEQ/L 11MEQ/L Blood Urea Nitrogen 12.0MG/DL 15.0MG/DL Creatinine 0.5MG/DL 0.5MG/DL Glomerular Filtration Rate Calc 116 116 BUN/Creatinine Ratio 24RATIO 30RATIO Glucose Level 175MG/DL 235MG/DL Calculated Osmolality 266MOSM/KG 271MOSM/KG Calcium Level 9.4MG/DL 9.3MG/DL Total Bilirubin 0.40MG/DL 0.30MG/DL Icterus Index < 2 < 2 Aspartate Amino Transf (AST/SGOT) 68U/L 47U/L Alanine Aminotransferase (ALT/SGPT) 94U/L 82U/L Alkaline Phosphatase 84U/L 75U/L Troponin I < 0.012ng/ml CI-Qai-R-Type Natriuretic Peptide 178PG/ML Total Protein 7.1G/DL 6.2G/DL Albumin 3.5G/DL 3.0G/DL Globulin 3.6G/DL 3.2G/DL Albumin/Globulin Ratio 1.0RATIO 0.9RATIO Chemistry Specimen Hemolysis 29 < 15 Urine Collection Type Voided-not cc-midstr Urine Color Yellow Urine Turbidity Clear Urine pH 6.0 Urine Specific [place] 1.015 Urine Protein Negative Urine Glucose (UA) Negative Urine Ketones Negative Urine Blood Negative Urine Nitrite Negative Urine Bilirubin Negative Urine Urobilinogen 0.2EU/DL Urine Leukocyte Esterase Negative Urinalysis Comment Microscopic not ind. Glucometer 215mg/dL Neutrophils % (Manual) 93.0% Lymphocytes % (Manual) 6.0% Monocytes % (Manual) 1.0% Absolute Neutrophils (Manual) 8.2T/MM3 Lymphocytes # (Manual) 0.5T/MM3 Monocytes # (Manual) 0.1T/MM3 Red Cell Morphology Comment Normal Test 09/23/16 05:50 09/23/16 07:14 09/23/16 11:45 Glucometer 241mg/dL 313mg/dL Adenovirus (PCR) Negative Bordetella parapertussis DNA (PCR) Negative Chlamydia pneumoniae DNA (PCR) Negative Coronavirus Type OC43 (PCR) Negative Coronavirus Type HKU1 (PCR) Negative Coronavirus Type 229E (PCR) Negative Coronavirus Type NL63 (PCR) Negative Human Metapneumovirus (PCR) Negative Influenza Virus Type A (PCR) Negative Influenza Virus Type B (PCR) Negative Mycoplasma pneumoniae (PCR) Negative Parainfluenza Type 1 (PCR) Negative Parainfluenza Type 2 (PCR) Negative Parainfluenza Type 3 (PCR) Negative Parainfluenza Type 4 (PCR) Negative Respiratory Syncytial Virus (PCR) Negative Enterovirus/Rhinovirus (PCR) Negative Radiology Radiology 3 view left knee shows severe tricompartmental bone on bone articulation, osteophytes throughout with subchondral sclerosis. No acute injury or bony lesions. FELICIA BENNETT Sep 23, 2016 14:43
--- NOTE | 2016-09-23 15:21 | STEVAL ---
Eval Subjective and History Date/Time of Eval DATE: 09/23/16 TIME: 11:52 Medical Diagnosis COPD with acute exacerbation. Treatment Order: Assessment Orientations: x 3, Cooperative Primary Complaint: weakness, cough Pain: No (Patient reported having no c/o pain ) Date of Onset of Primary Com: Dysphagia evaluation completed 09/23 Significant Past Medical Hx: PAST MEDICAL HISTORY Coronary artery disease with history of CABG. Hypertension. Hyperlipidemia. 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 COPD. Osteoarthritis. Vestibular dysfunction. Sliding hiatal hernia. Depression/anxiety. History of SVT. Hard of hearing. Constipation. History of right breast biopsy 2007. History of right total knee replacement 1994. Medical History Form Reviewed: Yes Residence Type: [facility] Lives With: other Prior Functional Status: Patient lived in [facility] prior to ER visit. Current Functional Status: Patient transported to [facility] Emergency Room secondary to increasing weakness and respiratory problems. Education Subject: Diet Person(s) Educated: Patient Instruction Understanding Demo: Pt. verbalizes understand Education Comment MANAGER [employer] EV[employer] educated patient on reasoning for evaluation. Patient was agreeable to evaluation. Subjective and History Comment: Patient was in a pleasant mood and cooperated with the clinicians. Patient presents endentulous and declined wearing dentures during the assessment. Patient agreed to having graduate clinician, Nai, complete assessment while being supervised by MANAGER SPECIAL EVENTS Vashit. Dysphagia Evaluation Evaluation Location: Chair Comment 90 Oral Peripheral Exam-facial: Facial Symmetry: No Impairment (WFL) Tongue Elevation: No Impairment (WFL) Tongue Lateralization: No Impairment (WFL) Tongue Protrusion: Minimal Impairment (deviation to the right side) Tongue Retraction: No Impairment (WFL) Tongue Extension Midline: No Impairment (WFL) Labial Approximation: No Impairment (WFL) Intraoral Air Pressure: No Impairment (WFL) Volitional Cough: No Impairment (WFL) Palatal Elevation: No Impairment (WFL) Larynx Elevation During [place]: No Impairment (WFL) Saliva Control: No Impairment (WFL) Dentition: Endentulous (declined wearing dentures during assessment) Lip Seal: Adequate-liquid (thin water), Adequate-pudding (vanilla pudding ), Adequate-solid (diced peaches, justina cracker ) Lingual Manipulation: Adequate-liquid, Adequate-pudding, Adequate-solid Chewing: Adequate-pudding, Adequate-solid Oral cavity clear post swallow: Adequate-liquid, Adequate-pudding, Adequate- solid Swallow initiated w/o delay: Adequate-liquid, Adequate-pudding, Adequate-solid Multiple swallows not needed: Adequate-liquid, Adequate-pudding, Adequate-solid Voice clear&dry post swallow: Adequate-liquid, Adequate-pudding, Adequate-solid No cough/throat clear: Adequate-liquid, Adequate-pudding, Inadequate-solid ( Patient produced 2 coughs following trials of diced peaches; however, no coughs were present during justina cracker trials) Assessment/Plan of Care Speech Therapy Impressions: An oral mechanism exam was completed first. Patient presented with symmetrical facial features. Patient demonstrated lingual deviation to the right during protrusion. No other labial or lingual impairments were observed. Patient presents endentulous and declined wearing dentures during assessment. A dysphagia evaluation was completed next. Patient was given trials of vanilla pudding first. Patient fed herself and demonstrated fair labial closure, mastication, and fair laryngeal elevation. Patient then fed herself trials of diced peaches producing 2 strong, dry coughs. Patient declined having any more peaches. Patient presented with clear oral cavity post swallow. Trials of justina cracker were given next. Patient exhibited fair mastication dentures. Fair laryngeal elevation was present as well. Patient trialed thin water via cup. No coughing and no other clinical s/s of aspiration were observed. Recommendations are as follows. ST Treatment Plan: Evaluation Only ST Treatment Plan Frequency: N/A Treatment Plan Duration: N/A Recommended Diet: Diet Recommendations: Soft/Chopped Diet Thin liquids Date of Visit 09/23/16 Time Visit Began: 10:35 Time Visit Ended: 10:55 ST Assess/Plan of Care: ST Treatment Charge: Swallow Eval Minutes of Individual Therapy: 20 GCODE Swallowing: G8996 - current Severity Modifier: CI - 1-19% Swallowing: G8997 - goal Severity Modifier: CI - 1-19% Swallowing: G8998 - d/c Severity Modifier: CI - 1-19% NAI CAVAZOS Sep 23, 2016 11:55
--- NOTE | 2016-09-23 15:24 | NUR ---
IRU screen reviewed. No available beds in the rehab unit at this time. Will continue to follow as medical discharge date is determined.
--- NOTE | 2016-09-23 16:29 | NUR ---
HYPERGLYCEMIA/INSULIN NOTIFIED DR RANKIN OF BLOOD GLUCOSE OF 360 RIGHT NOW. TOLD HIM OF THE 313 READING AT LUNCH AND THE INSULIN SHE RECEIVED. ORDERS TO GIVE 20 UNITS OF REGULAR INSULIN NOW AND TO NOT GIVE SS.
[2016-09-23] MEDS ORDERED: INSULIN REGULAR 100 UNIT/ML SQ ONE (16:30)
--- NOTE | 2016-09-23 18:12 | NUR ---
KNEE BRACE KNEE BRACE FROM DR BROOKS'S OFFICE HAD NOT ARRIVED TO PATIENT'S ROOM AT 1700. TALKED TO FELICIA BENNETT AND HE SAID THAT IT'S FINE IF IT IS NOT THERE TONIGHT, WILL LIKELY COME TOMORROW.
--- NOTE | 2016-09-23 18:31 | NUR ---
SHIFT SUMMARY VSS. RA. PATIENT REPORTS SOME PAIN IN LEFT KNEE WITH AMBULATION. UP TO CHAIR FOR ALL THREE MEALS. GOOD PO INTAKE. ADEQUATE OUTPUT. NS INFUSING AT 50CC/HR. BLOOD GLUCOSE LEVELS REMAIN ELEVATED, DR AWARE. BED AND CHAIR ALARMS IN USE.
[2016-09-23] MEDS: INSULIN DETEMIR 100 UNIT/ML SQ SCH (20:04)
[2016-09-23] MEDS: QUETIAPINE 25 MG TABLET PO SCH (20:05)
[2016-09-24] VITALS (9 sets, daily range): BP systolic 112–146; BP diastolic 60–67; PULSE 74–91; RESP 16–18; TEMP 96.5–97.1; O2SAT 90–94
[2016-09-24 05:41] LABS: HGB - HEMOGLOBIN 10.5 GM/DL (12-16); MEAN CORPUSCULAR HGB 31.3 UUG (26-34); MEAN CORPUSCULAR HGB CONC(MCHC 32.8 GM/DL (31-37); MEAN CORPUSCULAR VOLUME 95.2 UM3 (80-100); MEAN PLATELET VOLUME 9.4 UM3 (9.4-12.4); RED BLOOD COUNT 3.36 M/MM3 (4.00-5.20)
[2016-09-24 05:48] LABS: ANION GAP 9 MEQ/L (5-15); BUN/CREATININE RATIO 40 RATIO (6-26); CALCIUM 9.6 MG/DL (8.4-10.2); CHLORIDE 100 MEQ/L (98-107); CO2 - CARBON DIOXIDE 27 MEQ/L (22-30); CREATININE 0.5 MG/DL (0.7-1.2); GLOMERULAR FILTRATION RATE 116; GLUCOSE 260 MG/DL (65-110); POTASSIUM 4.3 MEQ/L (3.6-5); SODIUM 136 MEQ/L (134-144)
--- NOTE | 2016-09-24 05:50 | NUR ---
status Pt woke a bit confused as to where she was, A/O x3 now. One person assist with walker to BR. IVF infusing @ 50ml/hr. RA SHAY.
[2016-09-24] MEDS: NORMAL SALINE 1,000 ML IV SCH (05:57)
[2016-09-24 06:13] LABS: BAND NEUTROPHILS # 0.3 T/MM3; MONOCYTES # (MANUAL) 0.7 T/MM3 (0-0.8); TOTAL CELLS COUNTED 100 %
[2016-09-24] MEDS: ALBUTEROL/IPRATROPIUM INHAL. 2.5mg-0.5mg/3ml Neb. AEROSOL SCH ×4 (07:04→19:05)
[2016-09-24] MEDS: BUDESONIDE INH.SOLN. 0.5mg/2ml NEB AEROSOL SCH ×2 (07:04→19:05)
[2016-09-24] MEDS: GABAPENTIN 100 MG CAPSULE PO SCH ×3 (08:16→21:24)
[2016-09-24] MEDS: DILTIAZEM CD 120mg CAP (QD) PO SCH (08:16)
[2016-09-24] MEDS: ASPIRIN 81 MG CHEWABLE TABLET PO SCH (08:16)
[2016-09-24] MEDS: GUAIFENESIN DM 600mg/30mg TABLET PO SCH ×2 (08:16→21:24)
[2016-09-24] MEDS: BENAZEPRIL 10 MG TABLET PO SCH (08:16)
[2016-09-24] MEDS: CEFTRIAXONE 1 G in NORMAL SALINE 100 ML IV SCH (08:17)
--- NOTE | 2016-09-24 12:23 | PNPDOC ---
Subjective Date DATE: 09/24/16 TIME: 12:15 Subjective F/U: COPD exacerbation, Suspect pneumonia, Gait instability Trouble sleeping at night - too many interruptions. Does feel knee brace recommended by ortho is helpful-learning how to use it. Misses her wheeled walker-much easier to use than the one here. Breathing improving, but still with cough and congestion. Mobilizing sputum. No pain with breathing. Eating well. No ab pain. Objective Vital Signs Vital signs Vital Signs Date Time Temp Pulse Resp B/P Pulse Ox O2 Delivery O2 Flow Rate FiO2 09/24/16 10:41 88 09/24/16 10:36 18 92 09/24/16 07:38 96.6 120/67 Room Air Height (Feet): 5 Height (Inches): 3.00 Weight (Kilograms): 67.000 General General Appearance: Alert, Well Nourished, Well Developed, Cooperative, Looks Stated Age Eyes (Brief) Eyes: FOUND: EOMI, PERRL, NOT FOUND: scleral icterus ENMT (Brief) ENMT: FOUND: mucosa moist, NOT FOUND: hearing intact ([place]) Neck (Brief) Neck: FOUND: midline, NOT FOUND: nuchal rigidity, spasm Respiratory (Brief) Respiratory: FOUND: other (No distress on RA. Cough present ), NOT FOUND: clear all rapp (Decreased with scattered wheeze. Improving air movement), rales Cardiovascular (Brief) Cardiac: FOUND: pedal edema (Trace ), regular rate, regular rhythm Abdomen (Brief) Abdominal: FOUND: BS normo active x4, soft, NOT FOUND: distended, tender Extremities (Brief) Extremity : Side: Bilateral Extremity: leg Extremity Finding: FOUND: edema (trace) Musculoskeletal (Brief) Musculoskeletal: NOT FOUND: deformity, spasm Integumentary (Brief) Integumentary: FOUND: dry, warm Neurologic (Brief) Neurological: FOUND: cranial 2-12 intact, motor (Intact ) Psychiatric (Brief) Psychiatric: FOUND: alert, attentive, normal affect Laboratory Laboratory Laboratory Tests 09/22/16 17:08 09/23/16 05:37 09/24/16 05:25 Laboratory Tests 09/22/16 17:08 09/23/16 05:37 09/24/16 05:25 Assessment & Plan Problems: (1) COPD exacerbation Status: Acute (2) Pneumonia (3) Weakness Status: Acute (4) Gait instability Status: Chronic (5) Leukocytosis Status: Resolved Assessment & Plan: POA (6) Thrombocytosis Status: Resolved Assessment & Plan: POA (7) CAD (coronary artery disease) Status: Chronic Qualifiers: Coronary Disease-Associated Artery/Lesion type: [place]omon artery [place] vs. transplanted heart: solomon heart Associated angina: without angina Qualified Codes: I25.10 - Atherosclerotic heart disease of solomon coronary artery without angina pectoris (8) HTN (hypertension) Status: Chronic Qualifiers: Hypertension type: essential hypertension Qualified Codes: I10 - Essential (primary) hypertension (9) Hyperlipidemia Status: Chronic Qualifiers: Hyperlipidemia type: unspecified Qualified Codes: E78.5 - Hyperlipidemia, unspecified (10) Type II diabetes mellitus Status: Chronic Qualifiers: Diabetes mellitus complication status: without complication Diabetes mellitus jail insulin use: 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 (12) Elevated liver enzymes Status: Acute Assessment & Plan: POA (13) Hard of hearing Status: Chronic Qualifiers: Hearing loss type: unspecified Laterality: bilateral Qualified Codes: H91.93 - Unspecified hearing loss, bilateral (14) Depression Status: Chronic Qualifiers: Depression Type: unspecified Qualified Codes: F32.9 - Major depressive disorder, single episode, unspecified (15) Anxiety Status: Chronic Plan/Intensity of Service Will continue Rocephin for pulmonary coverage. Change Solu-Medrol to Prednisone 40mg daily with breakfast. Continue Neb treatment of DuoNeb and budesonide as well as Mucinex and acapella to help improve pulmonary performance. May D/C IVF as taking oral well. Encourage activities: PT/OT to help improve functional status. Ask nursing not to interrupt pt's sleep. Recheck CBC in am due to pneumonia. Recheck CMP in am due to medication use and elevated liver enzymes. Will check CXR tomorrow to follow up pulmonary status. Case discussed with CM. Time spent with pt care 35 minutes. DVT Prophylaxis: SCD'S Code Status Do Not Resuscitate Hospital Course Summary Disclaimer The hospital course summary below is not to be considered part of the above Progress Note. Hospital Course Summary 09/[address] patient in outpatient observation status at [facility] under the care of Dr. Moy. Initiate antimicrobial therapy with Rocephin 1 g IV daily. Start Solu-Medrol. She was given 125 mg IV in emergency room - will continue 62.5 mg IV q.6h. to help decrease pulmonary inflammation and it may also help improve some of her joint aches and pains. Initiate nebulized treatments of DuoNeb q.i.d. and q. 2 hours p.r.n. shortness of air. Will have budesonide 0.5 mg nebulized b.i.d. Start Acapella q.i.d. to help loosen secretions. Will initiate Mucinex DM as well. Monitor saturations, providing supplemental oxygen as needed. Continue with home medications, other than holding simvastatin secondary to slight elevation of liver enzymes. Monitor blood sugars, continuing her home Levemir. Will have insulin sliding scale available. Anticipate elevation of blood sugars secondary to steroids. Consult with PT/OT to help increase strength and functional abilities. Check respiratory PCR panel for completeness. Initiate SCDs for DVT prophylaxis. Recheck CBC and BMP in a.m. Initiate normal saline at 75 mL/hr to help with hydration. Patient will be DNR as per request. Patient's care will be returned to Dr. Fonseca at time of discharge from [facility]. 09/23 Breathing better - coughing up more sputum, which is helpful. Less congested. Less SOA. No pain with breathing or chest pain. Appetite fair. No nausea or ab pain. Worked with therapy. Still very difficult to ambulated-knees feel weak. Not having pain to knees. Change admission status to inpatient for continued treatment of pneumonia and COPD exacerbation. Will continue Rocephin for pulmonary coverage. Continue Solu-Medrol at 62.5mg IV q 6 hours. Continue Neb treatment of DuoNeb and budesonide as well as Mucinex and acapella to help improve pulmonary performance. Consult with Dr Gauthier for evaluation of knee limitations. PT/OT initiated to help improve functional status. Decrease IVF to 50 cc/hr. Recheck CBC in am due to pneumonia. Recheck BMP in am due to medication use. 09/24 Trouble sleeping at night - too many interruptions. Does feel knee brace recommended by ortho is helpful-learning how to use it. Misses her wheeled walker-much easier to use than the one here. Breathing improving, but still with cough and congestion. Mobilizing sputum. No pain with breathing. Eating well. No ab pain. Will continue Rocephin for pulmonary coverage. Change Solu-Medrol to Prednisone 40mg daily with breakfast. Continue Neb treatment of DuoNeb and budesonide as well as Mucinex and acapella to help improve pulmonary performance. May D/C IVF as taking oral well. Encourage activities: PT/OT to help improve functional status. Ask nursing not to interrupt pt's sleep. Recheck CBC in am due to pneumonia. Recheck CMP in am due to medication use and elevated liver enzymes. Will check CXR tomorrow to follow up pulmonary status. PHYLLIS MOY MD Sep 24, 2016 12:18
[2016-09-24] MEDS: INSULIN REGULAR 100 UNIT/ML SQ PRN ×3 (12:35→21:34)
[2016-09-24] MEDS: INSULIN ASPART 100 UNIT/ML SQ SCH (12:35)
--- NOTE | 2016-09-24 15:31 | NUR ---
CM CM IN TO VISIT WITH PT AND FAMILY, FAMILY REQUESTED MEDICAID APPLICATION, IT WAS PROVIDED. Addendum: 09/24/16 at 1534 by SALLY WHALEN RN CM WRONG PATIENT.
--- NOTE | 2016-09-24 18:40 | NUR ---
status Pt A/O x3, very [place]. V/S stable on RA. Pt denies pain at this time and no PRN meds. PRN s/s given with BGMs elevated all day. Pt ambulating well with 1x assist and walker. Urine output good for shift. Eating and drinking well, denies N/V. Pt up to chair most of the day, denies SOA.
[2016-09-24] MEDS: INSULIN DETEMIR 100 UNIT/ML SQ SCH (20:00)
[2016-09-24] MEDS: QUETIAPINE 25 MG TABLET PO SCH (21:24)
[2016-09-24] MEDS ORDERED: LATANOPROST 0.005% EYE DROPS 2.5 ML BOTTLE RIGHT EYE SCH (22:00)
[2016-09-25] MEDS: INSULIN REGULAR 100 UNIT/ML SQ PRN ×2 (06:32→11:04)
--- NOTE | 2016-09-25 06:44 | NUR ---
SUMMARY PT SLEPT WELL THIS SHIFT. ALERT AND ORIENTED. DENIED ANY PAIN. HAS BEEN UP SEVERAL TIMES ONE PERSON ASSIST TO USE THE BATHROOM. PT BGM HAS BEEN HIGH THIS SHIFT. S.S INSULIN GIVEN TWICE THIS SHIFT. REFUSED TO USE THE SCD'S THIS SHIFT. PT WAS EDUCATED ABOUT THE USE OF CALL LIGHT AND PT SAFETY. PT VOICED UNDERSTANDING. PT IS RUBY.
[2016-09-25 07:25] VITALS: BP 141/66; PULSE 70; RESP 18; TEMP 96.9; O2SAT 92
[2016-09-25 07:26] VITALS: PULSE 70; RESP 18
[2016-09-25] MEDS ORDERED: PredniSONE 20 MG TABLET PO SCH (08:00)
[2016-09-25 08:02] LABS: HCT - HEMATOCRIT 33.7 % (36-46); MEAN CORPUSCULAR HGB CONC(MCHC 32.6 GM/DL (31-37); MEAN CORPUSCULAR VOLUME 94.9 UM3 (80-100); MEAN PLATELET VOLUME 9.4 UM3 (9.4-12.4); RED BLOOD COUNT 3.55 M/MM3 (4.00-5.20)
[2016-09-25 08:11] LABS: ALKALINE PHOSPHATASE 63 U/L (38-126); ALT (SGPT) 88 U/L (9-52); ANION GAP 11 MEQ/L (5-15); AST (SGOT) 48 U/L (14-36); BUN/CREATININE RATIO 40 RATIO (6-26); CALCIUM 9.7 MG/DL (8.4-10.2); CHLORIDE 100 MEQ/L (98-107); CO2 - CARBON DIOXIDE 27 MEQ/L (22-30); CREATININE 0.5 MG/DL (0.7-1.2); GLOMERULAR FILTRATION RATE 116; GLUCOSE 130 MG/DL (65-110); POTASSIUM 4.2 MEQ/L (3.6-5); SODIUM 138 MEQ/L (134-144)
[2016-09-25 08:16] LABS: LYMPHOCYTES # (MANUAL) 0.9 T/MM3 (1-4.8); MONOCYTES # (MANUAL) 0.5 T/MM3 (0-0.8); NEUTROPHILS #(MANUAL)-ABSOLUTE 16.6 T/MM3 (1.8-7.7); TOTAL CELLS COUNTED 100 %
--- NOTE | 2016-09-25 08:36 | DI ---
INDICATION: ITS.REASON: F/U PROCEDURE: CHEST 2-VIEWS UPRIGHT (PA \T\ LAT) Encounter: Initial COMPARISON: September 22, 2016 FINDINGS: Mild interstitial prominence in both lungs, similar to the prior study. No focal consolidative pneumonia or pneumothorax. Small pleural effusions. Heart size is unchanged. Prior CABG. Hiatal hernia. Pulmonary vascularity is stable. Impression: Small pleural effusions. No focal pneumonia. .
[2016-09-25] MEDS: ASPIRIN 81 MG CHEWABLE TABLET PO SCH (08:49)
[2016-09-25] MEDS: GUAIFENESIN DM 600mg/30mg TABLET PO SCH (08:49)
[2016-09-25] MEDS: DILTIAZEM CD 120mg CAP (QD) PO SCH (08:49)
[2016-09-25] MEDS: BENAZEPRIL 10 MG TABLET PO SCH (08:49)
[2016-09-25] MEDS: GABAPENTIN 100 MG CAPSULE PO SCH ×2 (08:49→14:53)
[2016-09-25] MEDS: CEFTRIAXONE 1 G in NORMAL SALINE 100 ML IV SCH (08:50)
[2016-09-25 09:00] VITALS: O2SAT 94
[2016-09-25] MEDS: ALBUTEROL/IPRATROPIUM INHAL. 2.5mg-0.5mg/3ml Neb. AEROSOL SCH ×3 (09:08→14:57)
[2016-09-25] MEDS: BUDESONIDE INH.SOLN. 0.5mg/2ml NEB AEROSOL SCH (09:08)
--- NOTE | 2016-09-25 10:31 | PNPDOC ---
Subjective Date DATE: 09/25/16 TIME: 10:24 Subjective F/U: COPD exacerbation, Suspect pneumonia, Gait instability Doing okay. Breathing improving-neb treatments helpful. Some cough and congestion. No chest pain. Eating well. No nausea or ab pain. Tolerating knee brace-still in process of getting used to it. Not having knee pain or discomfort. No f/c. Objective Vital Signs Vital signs Vital Signs Date Time Temp Pulse Resp B/P Pulse Ox O2 Delivery O2 Flow Rate FiO2 09/25/16 09:19 75 09/25/16 09:00 20 94 09/25/16 07:25 96.9 141/66 Room Air Height (Feet): 5 Height (Inches): 3.00 Weight (Kilograms): 67.000 General General Appearance: Alert, Orientated x 3, Well Nourished, Well Developed, Cooperative, No Acute Distress, Looks Stated Age Eyes (Brief) Eyes: FOUND: EOMI, PERRL, NOT FOUND: scleral icterus ENMT (Brief) ENMT: FOUND: hearing intact ([place]), mucosa moist Neck (Brief) Neck: FOUND: midline, NOT FOUND: nuchal rigidity, spasm Respiratory (Brief) Respiratory: FOUND: equal bilaterally, other (Congested. Decrease breath sounds , improving air movement. No distress on RA. ), NOT FOUND: clear all rapp ( Decreased.), rales, wheezes Cardiovascular (Brief) Cardiac: FOUND: regular rate, regular rhythm Abdomen (Brief) Abdominal: FOUND: BS normo active x4, soft, NOT FOUND: distended, tender Extremities (Brief) Extremity : Side: Bilateral Extremity: leg Extremity Finding: FOUND: edema (Trace ) Musculoskeletal (Brief) Musculoskeletal: FOUND: extremities move equally, loss of motion, other, tenderness, NOT FOUND: deformity, spasm Integumentary (Brief) Integumentary: FOUND: dry, warm Neurologic (Brief) Neurological: FOUND: cranial 2-12 intact, motor (Intact ) Psychiatric (Brief) Psychiatric: FOUND: alert, attentive, normal affect, oriented Laboratory Laboratory Laboratory Tests 09/24/16 05:25 09/25/16 07:36 Laboratory Tests 09/24/16 05:25 09/25/16 07:36 Assessment & Plan Problems: (1) COPD exacerbation Status: Acute (2) Pneumonia Status: Resolved (3) Weakness Status: Acute (4) Gait instability Status: Chronic (5) Leukocytosis Status: Resolved Assessment & Plan: POA (6) Thrombocytosis Status: Resolved Assessment & Plan: POA (7) CAD (coronary artery disease) Status: Chronic Qualifiers: Coronary Disease-Associated Artery/Lesion type: ho-chunk artery [place] vs. 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 (12) Elevated liver enzymes Status: Acute Assessment & Plan: POA (13) Hard of hearing Status: Chronic Qualifiers: Hearing loss type: unspecified Laterality: bilateral Qualified Codes: H91.93 - Unspecified hearing loss, bilateral (14) Depression Status: Chronic Qualifiers: Depression Type: unspecified Qualified Codes: F32.9 - Major depressive disorder, single episode, unspecified (15) Anxiety Status: Chronic Plan/Intensity of Service Will d/c to home. Continue Neb treatments and acapella to help breathing. Prednisone 40mg daily for 4 days. Encourage activities - will have PT in outpatient setting. Recheck CMP in 1 week secondary to elevated liver enzymes. F/U with Dr Fonseca in 1 week for reevaluation. See orders for details. Case discussed with CM. Time spent with pt care and discharge greater than 35 minutes. DVT Prophylaxis: SCD'S Code Status Do Not Resuscitate Hospital Course Summary Disclaimer The hospital course summary below is not to be considered part of the above Progress Note. Hospital Course Summary 09/[address] patient in outpatient observation status at [facility] under the care of Dr. Chinmay. Initiate antimicrobial therapy with Rocephin 1 g IV daily. Start Solu-Medrol. She was given 125 mg IV in emergency room - will continue 62.5 mg IV q.6h. to help decrease pulmonary inflammation and it may also help improve some of her joint aches and pains. Initiate nebulized treatments of DuoNeb q.i.d. and q. 2 hours p.r.n. shortness of air. Will have budesonide 0.5 mg nebulized b.i.d. Start Acapella q.i.d. to help loosen secretions. Will initiate Mucinex DM as well. Monitor saturations, providing supplemental oxygen as needed. Continue with home medications, other than holding simvastatin secondary to slight elevation of liver enzymes. Monitor blood sugars, continuing her home Levemir. Will have insulin sliding scale available. Anticipate elevation of blood sugars secondary to steroids. Consult with PT/OT to help increase strength and functional abilities. Check respiratory PCR panel for completeness. Initiate SCDs for DVT prophylaxis. Recheck CBC and BMP in a.m. Initiate normal saline at 75 mL/hr to help with hydration. Patient will be DNR as per request. Patient's care will be returned to Dr. Fonseca at time of discharge from [facility]. 09/23 Breathing better - coughing up more sputum, which is helpful. Less congested. Less SOA. No pain with breathing or chest pain. Appetite fair. No nausea or ab pain. Worked with therapy. Still very difficult to ambulated-knees feel weak. Not having pain to knees. Change admission status to inpatient for continued treatment of pneumonia and COPD exacerbation. Will continue Rocephin for pulmonary coverage. Continue Solu-Medrol at 62.5mg IV q 6 hours. Continue Neb treatment of DuoNeb and budesonide as well as Mucinex and acapella to help improve pulmonary performance. Consult with Dr Gauthier for evaluation of knee limitations. PT/OT initiated to help improve functional status. Decrease IVF to 50 cc/hr. Recheck CBC in am due to pneumonia. Recheck BMP in am due to medication use. 09/24 Trouble sleeping at night - too many interruptions. Does feel knee brace recommended by ortho is helpful-learning how to use it. Misses her wheeled walker-much easier to use than the one here. Breathing improving, but still with cough and congestion. Mobilizing sputum. No pain with breathing. Eating well. No ab pain. Will continue Rocephin for pulmonary coverage. Change Solu-Medrol to Prednisone 40mg daily with breakfast. Continue Neb treatment of DuoNeb and budesonide as well as Mucinex and acapella to help improve pulmonary performance. May D/C IVF as taking oral well. Encourage activities: PT/OT to help improve functional status. Ask nursing not to interrupt pt's sleep. Recheck CBC in am due to pneumonia. Recheck CMP in am due to medication use and elevated liver enzymes. Will check CXR tomorrow to follow up pulmonary status. 09/25 Doing okay. Breathing improving-neb treatments helpful. Some cough and congestion. No chest pain. Eating well. No nausea or ab pain. Tolerating knee brace-still in process of getting used to it. Not having knee pain or discomfort. No f/c. Will d/c to home. Continue Neb treatments and acapella to help breathing. Prednisone 40mg daily for 4 days. Encourage activities - will have PT in outpatient setting. Recheck CMP in 1 week secondary to elevated liver enzymes. F/U with Dr Fonseca in 1 week for reevaluation. See orders for details. PHYLLIS RANKIN MD Sep 25, 2016 10:27
--- NOTE | 2016-09-25 11:00 | NUR ---
CM THIS WORKER SPOKE TO RORO AT [facility]. CONFIRMED SKILLED BENEFIT WITH RORO. THIS WORKER SPOKE TO PT ON THIS DATE. PT SITTING IN CHAIR IN ROOM. PT [place] AND ABLE TO UNDERSTAND HER RETURN TO [facility] ON THIS DATE. IM SIGNED WITH PT. NO QUESTIONS FROM PT AT THIS TIME. TRANSPORTATION TIME PROVIDED TO NURSE AT 1530. UPDATE TO PHYSICIAN AND NURSE.
[2016-09-25 11:20] VITALS: O2SAT 96
[2016-09-25] MEDS: INSULIN ASPART 100 UNIT/ML SQ SCH (11:54)
[2016-09-25] MEDS ORDERED: GUAI-782 PO (13:22)
[2016-09-25] MEDS ORDERED: PRED20TA PO (13:22)
[2016-09-25] MEDS ORDERED: MENTHOL COUGH MM (13:22)
[2016-09-25] MEDS ORDERED: IPRA3AMP AEROSOL ×2 (13:22)
--- NOTE | 2016-09-25 13:26 | PDOCECFAO ---
Admission Orders Admission Orders Admit to: Snf Allergies: Coded Allergies: Penicillins (Verified Allergy, Unknown, 09/22/16) Uncoded Allergies: ANTIHISTAMINES (Allergy, Unknown, 09/14/16) Admitting Diagnosis Copd Exacerbation Admitting Physician Arpan Moy MD Attending Physician Dr Fonseca Code Status Do Not Resuscitate Anticipated LOS: 30 days or less Rehab Potential: Fair Rehab Prognosis: Fair Diet: No Salt Added, No Concentrated Sweets May use Facility Protocol /SO: Yes Evaluations/Treat: PT, OT Snf Certification I certify that SNF services are required to be given on an Inpatient basis because of the patients need for fpc care on a continuing basis for the condition(s) for which he/she received inpatient hospital services prior to his/her transfer to the SNF. SNF inpatient care is necessary for the following reasons Teach Med Managment, Teach DM Management, Teach COPD Management, Other (Skilled PT/OT to help maximize functional status. ) Cardiac or Respiratory Arrest In Event of Arrest: Do Not Start CPR Resident is Aware of Diagnosis: Yes Additional Orders: F/U with Dr Fonseca in 1 week Use Acapella 4-6 times a day to loosen secretions. Oxygen as needed to keep sats >90% Pt to wear brace to left knee during day. Monitor blood sugars as prior to admission to [facility]. ARPAN MOY MD Sep 25, 2016 13:26
--- NOTE | 2016-09-25 13:30 | NUR ---
PT NOTE: Pt refused skilled PT services d/t D/C later today. Will cont per POC. Call [phone] with questions.
[2016-09-25 13:35] VITALS: BP 128/59; PULSE 83; RESP 16; TEMP 97.4; O2SAT 92
[2016-09-25 14:57] VITALS: O2SAT 93
--- NOTE | 2016-09-25 15:57 | NUR ---
DISMISSAL TO BLOSSOM PONCE PT RETURNING TO . [facility]SS. RA. DENIES PAIN. TAKEN VIA TRANSPORTATION. PAPERWORK PACKET SENT WITH TRANSPORTER.
--- NOTE | 2016-09-26 12:08 | DSF ---
ADMISSION DIAGNOSES Chronic obstructive pulmonary disease with acute exacerbation/suspect pneumonia. DISCHARGE DIAGNOSES: Chronic obstructive pulmonary disease with acute exacerbation--stabilized. ASSOCIATED CONDITIONS AND COMPLICATIONS 1. Pneumonia--improved. 2. Weakness. 3. Gait instability. 4. Leukocytosis. 5. Thrombocytosis. 6. Coronary artery disease. 7. Hypertension. 8. Hyperlipidemia. 9. Type 2 diabetes mellitus--insulin requiring. 10. Osteoarthritis. 11. Elevated liver enzymes. 12. Hard of hearing. 13. Depression. 14. Anxiety. CONSULTS 1. Dr. Gauthier--Orthopedic Surgery. 2. PT/OT. PROCEDURE None. HISTORY OF PRESENT ILLNESS Mrs. Samuel is an 86-year-old female who represents to [facility] secondary to increasing weakness but also respiratory problems. She was seen in [facility] on 09/14/2016. At that time she had been having increasing weakness for one week. She has fallen in her room on several occasions. It is harder for to get up and be active. Around that time she was having episode of emesis. She was started on oxygen at her facility as her saturations were running 88% on room air. In light of her worsening symptoms of weakness she was sent to the emergency room to exclude sepsis. At that time her white count was 13.3. Chest x-ray showed an area of atelectasis or pneumonia. Septic markers were negative. She was treated with Rocephin and completed azithromycin. She represents on the --at that time she had completed the Z-Jayjay but she was still having episodes of hypoxia, cough, and congestion. Facility found that her oxygen saturation was 88% on 2 liters and she was sent to emergency room for evaluation. While in emergency room she was only needing 0.5 liter to maintain saturations. Chest x-ray showed no change. Lab was essentially stable. She was discharged to home. Today she represents. She has been having cough productive of yellow sputum. She does feel her cough is starting to loosen up and she is mobilizing more phlegm than in the past several days. The breathing treatment given in emergency room was very beneficial. Her biggest complaint, though, is she simply is so weak and unstable. Her left leg has been giving out on her and it makes ambulating in her apartment problematic. She denies fevers or chills. She does note shortness of breath off and on but nothing horrible or dramatic. She denies pain with breathing. She is not having chest pressure, pain, or discomfort. Appetite has been stable. She has not been having nausea or vomiting. Bowels have been moving without constipation or diarrhea. She is not having urinary pain or discomfort. In emergency room she was reevaluated. White count is 12.7 but platelets are elevated at 410. UA shows no evidence of infection. Chest x-ray looks largely stable. In light of her persistent weakness and COPD with exacerbation coupled with probable pneumonia, Dr. Moy was notified. Patient was placed in outpatient observation for further evaluation and treatment. For complete details of the H&P, refer to that document. LABORATORY DATA White blood count is 12.7, with 74.5% neutrophils. Hemoglobin is 12.4, with hematocrit 39.0, MCV 98.2, and platelets 410,000. Serum sodium is 136, potassium 4.4, chloride 94, CO2 26, BUN 12 with creatinine 0.5, GFR 116, and blood glucose 175. AST is 68 with ALT 94. Troponin I is less than 0.012. Pro-BNP is 178. UA is completely unremarkable. Hemoglobin A1c is 6.3%. Respiratory PCR panel is completely negative. HOSPITAL COURSE Patient was placed in outpatient observation status at [facility] under the care of Dr. Moy. We did initiate Rocephin 1 gram IV daily for empiric antimicrobial coverage of pulmonary pathogens. She was started on Solu-Medrol 125 mg IV x1 in the emergency room after which we utilized 62.5 mg IV every 6 hours to help decrease pulmonary inflammation. It is also hopeful this may help with some of her joint aches and pains. Nebulized treatments of Duo-Neb were initiated 4 times daily along with budesonide 0.5 mg twice daily. Acapella was initiated 4 times daily to help loosen secretions and we also started Mucinex DM towards the same effect. Oxygen saturations were monitored. Home medications were continued other than holding Simvastatin secondary to the slight elevation of liver enzymes that we saw at time of presentation. Blood sugars were monitored. We continued Levemir and did have insulin sliding scale available. Elevation of blood sugars secondary to steroids was anticipated and also seen. PT and OT were consulted to help increase strength and functional status. SCDs were utilized for deep vein thrombosis prophylaxis. Initially we did start normal saline at 75 mL an hour to help with hydration. She was made DNR at time of presentation as per request. Overall her hospital course was one of gradual improvement. By hospital day #1, she was breathing better but starting to mobilize more sputum. She felt Acapella was helpful. She is feeling less congested and less short of air. While she was participating with therapy, she found it still very difficult to ambulate as her knees felt weak and quite unstable. She is not having pain in the knees. We did consult with Dr. Gauthier for evaluation of her knee symptoms. X-rays were obtained showing no acute bony abnormality. They did ultimately recommend brace, which was provided and found to be helpful by patient. As symptoms were making gradual improvement, we did continue Solu-Medrol and Rocephin. IV fluids were decreased to 50 mL an hour. In light of continued symptoms, she was made inpatient admission on 09/23/2016 (hospital day #1). By 09/24/2016 she continued to see more improvement of breathing. Mobilization of sputum. She is eating well. we did discontinue Solu-Medrol and started prednisone 40 mg daily the next day. IV fluids were discontinued as she was taking oral well. I encouraged the patient to continue to work with therapy. By the time of discharge, the patient was eating, drinking, and breathing well. Vitals were stable and she is afebrile. She was maintaining saturations in the 92% to 96% range on room air. Her electrolytes and renal status were stable. Blood sugar did show increase but most likely this is steroid effect. Hemoglobin was stable at 11.0. Liver enzymes were rechecked on day of discharge and trending downwards with AST decreasing from 68 down to 48 and ALT decreasing from 94 to 88. We are recommending recheck liver enzymes in the outpatient setting. Additionally I feel continuation of therapy would be beneficial. Case Management will help make arrangements for half-way at [facility] where she resides. NARRATIVE DISCLAIMER Above narrative is a brief summary of the patient's hospitalization. For complete details of the hospital course, refer to the medical record. DISCHARGE CONDITION Stable/good. DIET No added salt, no concentrated sweets. ACTIVITIES As tolerated--walker for assistance, wear brace to left knee while awake. MEDICATIONS 1. Prednisone 40 mg daily for four days. 2. Mucinex DM twice daily for seven days. 3. Nebulized treatments of Duo-Neb 4 times daily and every 2 hours p.r.n. shortness of air. 4. Ricola Cough Drops p.r.n. cough. 5. Aspirin 81 mg daily. 6. QVAR 80 mg two puffs twice daily. 7. Lotensin 10 mg daily. 8. Citalopram 20 mg daily. 9. Diltiazem 120 mg daily. 10. Neurontin 100 mg 3 times daily. 11. Diabetic Tussin DM liquid p.r.n. 12. Levemir 18 units in the evening. 13. NovoLog 10 units subcutaneous at noon. 14. NovoLog 6 to 10 units p.r.n. 15. Combivent two puffs every 4 hours p.r.n. shortness of air. 16. Latanoprost one drop right eye in the evening. 17. Maalox 30 mL every 2 hours p.r.n. 18. Multivitamin daily. 19. Naproxen 220 mg daily p.r.n. pain. 20. Glucerna p.r.n. 21. Seroquel 12.5 mg at bedtime. 22. Simvastatin 40 mg at bedtime. FOLLOWUP Patient will follow with Dr. Fonseca in one week. I recommend to check CMP at that time secondary to elevated liver enzymes. INSTRUCTIONS TO PATIENT Patient was instructed on her diagnoses and treatments provided. We encouraged her to continue to participate well with therapy to increase strength and functional abilities. I encouraged her to use a walker for assistance. She will also continue to use a knee brace as recommended by Dr. Gauthier. She was encouraged to be adherent with medications. She will watch for temperature greater than 100.4, worsening shortness of breath, cough, congestion, sputum, or increasing leg pain. Should these or other problems occur, she could be in contact with her primary provider. If symptoms become quite dire, she can present to the emergency room for acute evaluation. She voiced understanding of the above. Time spent with discharge greater than 35 minutes. MTDD
== END 2016-09-25 15:57 | DRG 190 ==
LOC: ED 16:50 → EDHOLD 18:31 → MED 19:25 → OBSVTOIN 09-23 10:53
PROVIDERS: ADMIT Hospitalist; ATTEND Hospitalist
DX: J44.1 Chronic obstructive pulmonary disease with (acute) exacerbation (principal); J18.9 Pneumonia, unspecified organism; E11.9 Type 2 diabetes mellitus without complications; R26.89 Other abnormalities of gait and mobility; I25.10 Atherosclerotic heart disease of native coronary artery without angina pectoris; I10 Essential (primary) hypertension; E78.5 Hyperlipidemia, unspecified; F41.9 Anxiety disorder, unspecified; F32.9 Major depressive disorder, single episode, unspecified; K59.00 Constipation, unspecified; M15.0 Primary generalized (osteo)arthritis; Z79.4 Long term (current) use of insulin; Z79.82 Long term (current) use of aspirin; Z95.1 Presence of aortocoronary bypass graft
CPT/HCPCS: 36415; 80048; 80053; 81003; 82948; 83036; 83880; 84484; 85025; 87486; 87581; 87633; 87798; 93005; 94640; 94668; 96365; 96375; 99218